=== PATIENT | female | born 1965 | race Caucasian/White ===

== ENCOUNTER → 2019-06-21 | Outpatient (CLI) | payer MEDICARE, MEDICAID ==
[2019-06-21 10:58] LABS: Calcium 8.8 mg/dL (8.5-10.1)
== END | disposition home or self-care (01) ==
LOC: LAB 09:34
PROVIDERS: ATTEND Internal Medicine Cardiovascular Disease
DX: E11.9 Type 2 diabetes mellitus without complications (principal); I42.0 Dilated cardiomyopathy; Z87.891 Personal history of nicotine dependence; Z98.890 Other specified postprocedural states; Z90.710 Acquired absence of both cervix and uterus; Z82.3 Family history of stroke; Z80.9 Family history of malignant neoplasm, unspecified; Z82.49 Family history of ischemic heart disease and other diseases of the circulatory system
CPT/HCPCS: 36415; 80048

== ENCOUNTER 2021-01-26 07:51 | Day surgery (SDC) | payer MEDICARE, OTHER, MEDICAID ==
[~2021-01-26] VITALS: Ht 160 cm; Wt 66.7 kg
[~2021-01-26 07:51] MED LIST: ASPI1TAB19 PO; CARV3.1240 PO; FLUT1AER3 IN; FURO20TA3 PO; LEVA1AER IN; METF-490 PO; PANT40TA2 PO; POTA10TA51 PO; ROSU10TA16 PO; SACU1TAB PO; SITA100T7 PO
[2021-01-26] MEDS ORDERED: VANCOMYCIN 500 MG in D5W 5% 100 ML IV ONE (09:15)
[2021-01-26] MEDS ORDERED: VANCOMYCIN 1GM/250ML 250 ML IV ONE ×2 (10:00→11:33)
[2021-01-26] MEDS ORDERED: MIDAZOLAM HCL 2MG/2ML 2ml VIAL (1mg/ml) ONE (11:32)
[2021-01-26] MEDS ORDERED: fentaNYL CITRATE 100 MCG/2 ML VL ONE (11:32)
[2021-01-26] MEDS ORDERED: VANCOMYCIN HCL 1000 MG VL ONE (11:32)
[2021-01-26] MEDS ORDERED: LIDOCAINE 2%HCL (LOCAL ANESTH.) INJ 20ML MDV ONE (11:33)
== END 2021-01-26 15:08 | disposition home or self-care (01) ==
LOC: CATH 07:51
PROVIDERS: ADMIT Internal Medicine Cardiovascular Disease; ATTEND Internal Medicine Cardiovascular Disease
DX: Z45.02 Encounter for adjustment and management of automatic implantable cardiac defibrillator (principal); R07.89 Other chest pain; Z98.890 Other specified postprocedural states; I42.9 Cardiomyopathy, unspecified; Z88.0 Allergy status to penicillin; Z20.822 Contact with and (suspected) exposure to COVID-19; Z68.26 Body mass index [BMI] 26.0-26.9, adult
CPT/HCPCS: 33263; C1882; J2250; J3010; J3370; J7030; U0003; 99152; 99153; J7060

== ENCOUNTER 2021-02-08 16:39 | Emergency (ER) | payer MEDICARE, OTHER, MEDICAID ==
[~2021-02-08] VITALS: Ht 160 cm; Wt 65.3 kg
[2021-02-08 17:07] VITALS: BP 119/86
== END 2021-02-08 18:17 | disposition home or self-care (01) ==
LOC: ER 16:39
DX: I10 Essential (primary) hypertension (principal); Z48.01 Encounter for change or removal of surgical wound dressing

== ENCOUNTER 2021-02-17 07:19 | Emergency (ER) | payer MEDICARE, OTHER, MEDICAID ==
[~2021-02-17] VITALS: Ht 157.5 cm; Wt 65.3 kg
[2021-02-17 09:19] LABS: Basophils # (auto) 0.1 10 ^3/uL (0-0.2); Basophils % (auto) 0.6 % (0.0-2.0); Eosinophils # (auto) 0.6 10 ^3/uL (0-0.8); Eosinophils % (auto) 4.3 % (0.0-7.0); Hematocrit 40.9 % (36.0-46.0); Hemoglobin 14.6 g/dL (12.2-16.2); Lymphocytes # (auto) 3.1 10 ^3/uL (0.4-5.4); Lymphocytes % (auto) 21.9 % (10.0-50.0); Mean Corpuscular Hemoglobin 33.3 pg (28.0-32.0); Mean Corpuscular Hgb Conc. 35.7 g/dL (32.0-36.0); Mean Corpuscular Volume 93.3 fL (80.0-100.0); Monocytes # (auto) 0.9 10 ^3/uL (0-1.3); Monocytes % (auto) 6.5 % (0.0-12.0); Neutrophils # (auto) 9.5 10 ^3/uL (1.6-8.6); Neutrophils % (auto) 66.7 % (37.0-80.0); Red Blood Cells 4.39 10^6/uL (4.0-5.20); White Blood Cell 14.3 10^3/uL (4.4-10.8)
[2021-02-17 09:30] LABS: Albumin 3.4 g/dL (3.4-5.0); BUN/Creatinine Ratio 28.6; Calcium 9.1 mg/dL (8.5-10.1); Potassium 3.6 mmol/L (3.5-5.1)
[2021-02-17 09:42] LABS: Bilirubin, Total 0.7 mg/dL (0.2-1.0)
[2021-02-17] MEDS ORDERED: cefTRIAXone 1GM/50ML D5W 50 ML IV ONE (13:45)
[2021-02-17 14:45] VITALS: BP 103/71
== END 2021-02-17 15:06 | disposition home or self-care (01) ==
LOC: ER 07:19
DX: T81.41XA Infection following a procedure, superficial incisional surgical site, initial encounter (principal); L03.313 Cellulitis of chest wall; I11.0 Hypertensive heart disease with heart failure; I50.9 Heart failure, unspecified; J44.9 Chronic obstructive pulmonary disease, unspecified; E11.9 Type 2 diabetes mellitus without complications; E78.5 Hyperlipidemia, unspecified
CPT/HCPCS: 36415; 80053; 85025; 85049; 87040; 87205; 96365; 99284; J0696

== ENCOUNTER 2021-03-14 16:18 | Inpatient (IN) | payer MEDICARE, MEDICAID ==
[~2021-03-14] VITALS: Ht 160 cm; Wt 69.6 kg
[2021-03-14 17:23] LABS: Basophils # (auto) 0.1 10 ^3/uL (0-0.2); Eosinophils # (auto) 0.6 10 ^3/uL (0-0.8); Eosinophils % (auto) 5.2 % (0.0-7.0); Hematocrit 44.8 % (36.0-46.0); Hemoglobin 15.8 g/dL (12.2-16.2); Lymphocytes # (auto) 2.8 10 ^3/uL (0.4-5.4); Mean Corpuscular Hgb Conc. 35.3 g/dL (32.0-36.0); Mean Corpuscular Volume 93.6 fL (80.0-100.0); Monocytes # (auto) 0.7 10 ^3/uL (0-1.3); Monocytes % (auto) 6.1 % (0.0-12.0); Neutrophils # (auto) 6.7 10 ^3/uL (1.6-8.6); Neutrophils % (auto) 61.7 % (37.0-80.0); Nucleated Red Blood Cells % 0.1 %; Red Blood Cells 4.78 10^6/uL (4.0-5.20); Red Cell Distribution Width 14.1 % (11.8-14.3); White Blood Cell 10.9 10^3/uL (4.4-10.8)
[2021-03-14] MEDS ORDERED: cefTRIAXone 1GM/50ML D5W 50 ML IV ONE (17:30)
[2021-03-14 17:41] LABS: Albumin 4.1 g/dL (3.4-5.0); Anion Gap 5 (5-15); Blood Urea Nitrogen 13 mg/dL (7-18); Calcium 9.2 mg/dL (8.5-10.1); Carbon Dioxide 29 mmol/L (21-32); Chloride 106 mmol/L (98-107); Glucose 128 mg/dL (74-106); Potassium 4.2 mmol/L (3.5-5.1); Sodium 140 mmol/L (136-145)
[2021-03-14 17:43] LABS: Alanine Aminotransferase 74 U/L (13-56); Aspartate Aminotransferase 74 U/L (15-37); BUN/Creatinine Ratio 18.8; GFR African American 114 mL/min; GFR Non-African American 94 mL/min
[2021-03-14 17:48] LABS: Alkaline Phosphatase 99 U/L (45-117); Bilirubin, Total 0.5 mg/dL (0.2-1.0); Total Protein 8.2 g/dL (6.4-8.2)
[2021-03-14] MEDS ORDERED: SODIUM CHLORIDE 0.9% 1,000 ML IV ONE (18:00)
[2021-03-14] MEDS ORDERED: NITROGLYCERIN 0.4 MG SL TAB SL PRN (18:00)
[2021-03-14] MEDS ORDERED: DEXTROSE (50%) 50ML SYRG IV PRN (18:00)
[2021-03-14] MEDS ORDERED: VANCOMYCIN PER PHARMACY 0 MG IV SCH (18:00)
[2021-03-14] MEDS ORDERED: MORPHINE SULF INJ 2 MG/ML SYRINGE 1ML IV PRN (18:00)
[2021-03-14] MEDS: VANCOMYCIN 1GM/250ML 250 ML IV SCH ×2 (19:44→22:00)
[2021-03-14 22:30] VITALS: BP 98/68
[2021-03-14] MEDS: ACCU-CHEK COMFORT CURVE STRIP VI SCH (22:58)
[2021-03-14] MEDS: InsuLIN REG 1unit/0.01ml Soln (100units/ml) SC SCH (23:00)
[2021-03-15] VITALS (7 sets, daily range): BP systolic 108–147; BP diastolic 67–80
[2021-03-15] MEDS: ACCU-CHEK COMFORT CURVE STRIP VI SCH ×4 (06:14→22:09)
[2021-03-15] MEDS: InsuLIN REG 1unit/0.01ml Soln (100units/ml) SC SCH ×4 (06:14→22:10)
[2021-03-15] MEDS: SACUBITRIL-VALSARTAN 24mg/26mg TAB PO SCH (06:15)
[2021-03-15] MEDS: PANTOPRAZOLE 40 MG TAB PO SCH (06:15)
[2021-03-15] MEDS: CARVEDILOL 3.125 MG TAB PO SCH (06:16)
[2021-03-15 06:54] LABS: Basophils # (auto) 0.1 10 ^3/uL (0-0.2); Basophils % (auto) 0.7 % (0.0-2.0); Eosinophils # (auto) 0.7 10 ^3/uL (0-0.8); Eosinophils % (auto) 6.9 % (0.0-7.0); Hematocrit 42.9 % (36.0-46.0); Hemoglobin 15.1 g/dL (12.2-16.2); Lymphocytes # (auto) 2.9 10 ^3/uL (0.4-5.4); Lymphocytes % (auto) 26.8 % (10.0-50.0); Mean Corpuscular Hemoglobin 33.3 pg (28.0-32.0); Mean Corpuscular Hgb Conc. 35.3 g/dL (32.0-36.0); Mean Corpuscular Volume 94.3 fL (80.0-100.0); Monocytes # (auto) 0.7 10 ^3/uL (0-1.3); Monocytes % (auto) 6.3 % (0.0-12.0); Neutrophils # (auto) 6.4 10 ^3/uL (1.6-8.6); Neutrophils % (auto) 59.3 % (37.0-80.0); Red Blood Cells 4.54 10^6/uL (4.0-5.20); Red Cell Distribution Width 14.4 % (11.8-14.3); White Blood Cell 10.8 10^3/uL (4.4-10.8)
[2021-03-15 07:20] LABS: Albumin 3.6 g/dL (3.4-5.0); BUN/Creatinine Ratio 22.2; Calcium 8.7 mg/dL (8.5-10.1); Potassium 3.9 mmol/L (3.5-5.1)
[2021-03-15 07:23] LABS: Bilirubin, Total 0.4 mg/dL (0.2-1.0); Total Protein 7.1 g/dL (6.4-8.2)
[2021-03-15] MEDS: cefTRIAXone 1GM/50ML D5W 50 ML IV SCH (09:00)
[2021-03-15] MEDS ORDERED: ASPirin-EC 81 mg tab PO SCH (10:00)
[2021-03-15] MEDS: VANCOMYCIN 1GM/250ML 250 ML IV SCH ×2 (10:08→21:20)
[2021-03-15 18:04] LABS: Urine Bacteria FEW /hpf (None Seen); Urine Blood Negative /uL (Negative); Urine Specific Gravity 1.004 (1.001-1.035); Urine WBC 4 /hpf (0 - 5)
[2021-03-15] MEDS: ATORVASTATIN 20 MG TAB PO SCH (21:19)
[2021-03-16] VITALS (7 sets, daily range): BP systolic 98–121; BP diastolic 64–73
[2021-03-16] MEDS ORDERED: ALBUTEROL SULF 2.5 MG/0.5ML(0.5%) NEB SOLN NEB PRN (05:00)
[2021-03-16] MEDS ORDERED: ACETAMINOPHEN 325 MG TAB PO ONE (05:00)
[2021-03-16] MEDS: SACUBITRIL-VALSARTAN 24mg/26mg TAB PO SCH (06:40)
[2021-03-16] MEDS: CARVEDILOL 3.125 MG TAB PO SCH (06:40)
[2021-03-16] MEDS: ACCU-CHEK COMFORT CURVE STRIP VI SCH ×4 (06:41→22:30)
[2021-03-16] MEDS: PANTOPRAZOLE 40 MG TAB PO SCH (06:41)
[2021-03-16] MEDS: InsuLIN REG 1unit/0.01ml Soln (100units/ml) SC SCH ×4 (06:45→22:31)
[2021-03-16] MEDS: cefTRIAXone 1GM/50ML D5W 50 ML IV SCH (09:17)
[2021-03-16] MEDS: VANCOMYCIN 1GM/250ML 250 ML IV SCH ×2 (10:00→22:46)
[2021-03-16] MEDS: ASPirin 81 mg TAB PO SCH (10:18)
[2021-03-16] MEDS: ATORVASTATIN 20 MG TAB PO SCH (22:45)
[2021-03-17 05:20] VITALS: BP 116/73
[2021-03-17] MEDS: ACCU-CHEK COMFORT CURVE STRIP VI SCH ×4 (06:17→21:51)
[2021-03-17] MEDS: InsuLIN REG 1unit/0.01ml Soln (100units/ml) SC SCH ×4 (06:19→21:54)
[2021-03-17] MEDS: SACUBITRIL-VALSARTAN 24mg/26mg TAB PO SCH (06:24)
[2021-03-17] MEDS: CARVEDILOL 3.125 MG TAB PO SCH (06:25)
[2021-03-17] MEDS: PANTOPRAZOLE 40 MG TAB PO SCH (06:26)
[2021-03-17 08:00] VITALS: BP 136/77
[2021-03-17 09:00] VITALS: BP 136/77
[2021-03-17] MEDS: ASPirin 81 mg TAB PO SCH (09:27)
[2021-03-17] MEDS: cefTRIAXone 1GM/50ML D5W 50 ML IV SCH (09:27)
[2021-03-17] MEDS: VANCOMYCIN 1GM/250ML 250 ML IV SCH ×2 (10:05→21:50)
[2021-03-17 14:00] VITALS: BP 113/73
[2021-03-17 17:00] VITALS: BP 105/67
[2021-03-17] MEDS: ATORVASTATIN 20 MG TAB PO SCH (21:50)
[2021-03-17 22:00] VITALS: BP 120/75
[2021-03-18] MEDS: CARVEDILOL 3.125 MG TAB PO SCH (06:32)
[2021-03-18] MEDS: SACUBITRIL-VALSARTAN 24mg/26mg TAB PO SCH (06:32)
[2021-03-18] MEDS: PANTOPRAZOLE 40 MG TAB PO SCH (06:33)
[2021-03-18] MEDS: ACCU-CHEK COMFORT CURVE STRIP VI SCH ×4 (06:33→22:23)
[2021-03-18] MEDS: InsuLIN REG 1unit/0.01ml Soln (100units/ml) SC SCH ×4 (06:34→22:43)
[2021-03-18] MEDS: cefTRIAXone 1GM/50ML D5W 50 ML IV SCH (08:30)
[2021-03-18 09:00] VITALS: BP 136/76
[2021-03-18] MEDS: ASPirin 81 mg TAB PO SCH (09:59)
[2021-03-18] MEDS: VANCOMYCIN 1GM/250ML 250 ML IV SCH ×2 (10:00→22:23)
[2021-03-18 17:00] VITALS: BP 120/77
[2021-03-18 20:00] VITALS: BP 128/85
[2021-03-18 22:00] VITALS: BP 128/85
[2021-03-18] MEDS: ATORVASTATIN 20 MG TAB PO SCH (22:23)
[2021-03-19] VITALS (7 sets, daily range): BP systolic 116–130; BP diastolic 74–85
[2021-03-19 06:11] LABS: Basophils # (auto) 0.1 10 ^3/uL (0-0.2); Basophils % (auto) 0.7 % (0.0-2.0); Eosinophils # (auto) 0.7 10 ^3/uL (0-0.8); Eosinophils % (auto) 6.5 % (0.0-7.0); Hematocrit 43.2 % (36.0-46.0); Lymphocytes # (auto) 2.9 10 ^3/uL (0.4-5.4); Lymphocytes % (auto) 24.9 % (10.0-50.0); Mean Corpuscular Hemoglobin 33.3 pg (28.0-32.0); Mean Corpuscular Hgb Conc. 34.8 g/dL (32.0-36.0); Mean Corpuscular Volume 95.8 fL (80.0-100.0); Monocytes # (auto) 0.8 10 ^3/uL (0-1.3); Monocytes % (auto) 6.7 % (0.0-12.0); Neutrophils # (auto) 7.1 10 ^3/uL (1.6-8.6); Neutrophils % (auto) 61.2 % (37.0-80.0); Red Blood Cells 4.51 10^6/uL (4.0-5.20); Red Cell Distribution Width 14.2 % (11.8-14.3); White Blood Cell 11.5 10^3/uL (4.4-10.8)
[2021-03-19 06:37] LABS: Calcium 8.7 mg/dL (8.5-10.1); Potassium 3.9 mmol/L (3.5-5.1)
[2021-03-19] MEDS: CARVEDILOL 3.125 MG TAB PO SCH (06:40)
[2021-03-19] MEDS: ACCU-CHEK COMFORT CURVE STRIP VI SCH ×4 (06:40→22:16)
[2021-03-19] MEDS: SACUBITRIL-VALSARTAN 24mg/26mg TAB PO SCH (06:40)
[2021-03-19] MEDS: PANTOPRAZOLE 40 MG TAB PO SCH (06:40)
[2021-03-19] MEDS: InsuLIN REG 1unit/0.01ml Soln (100units/ml) SC SCH ×3 (06:44→17:37)
[2021-03-19] MEDS: cefTRIAXone 1GM/50ML D5W 50 ML IV SCH (08:27)
[2021-03-19] MEDS: ASPirin 81 mg TAB PO SCH (10:14)
[2021-03-19] MEDS: VANCOMYCIN 1GM/250ML 250 ML IV SCH ×2 (10:14→22:00)
[2021-03-19] MEDS ORDERED: DEXTROSE (50%) 50ML SYRG IV PRN (10:30)
[2021-03-19] MEDS ORDERED: InsuLIN REG 1unit/0.01ml Soln (100units/ml) SC SCH (22:00)
[2021-03-19] MEDS: ATORVASTATIN 20 MG TAB PO SCH (22:15)
== END 2021-03-20 00:25 | disposition short-term general hospital (02) | DRG 920 ==
LOC: ER 16:18 → TELE 17:48 → TELE-EAST 22:00 → TELE-CENTR 03-17 22:48
PROVIDERS: ADMIT Nurse Practitioner Acute Care; ATTEND Internal Medicine
DX: T81.31XA Disruption of external operation (surgical) wound, not elsewhere classified, initial encounter (principal); L03.313 Cellulitis of chest wall; I50.22 Chronic systolic (congestive) heart failure; N39.0 Urinary tract infection, site not specified; I42.0 Dilated cardiomyopathy; E11.9 Type 2 diabetes mellitus without complications; Z20.822 Contact with and (suspected) exposure to COVID-19; E78.5 Hyperlipidemia, unspecified; I11.0 Hypertensive heart disease with heart failure; J44.9 Chronic obstructive pulmonary disease, unspecified; Y83.8 Other surgical procedures as the cause of abnormal reaction of the patient, or of later complication, without mention of misadventure at the time of the procedure; Z91.19 Patient's noncompliance with other medical treatment and regimen; Y92.89 Other specified places as the place of occurrence of the external cause; Z79.899 Other long term (current) drug therapy
CPT/HCPCS: 36415; 71046; 80048; 80053; 80202; 81001; 82962; 83036; 83605; 83880; 84484; 85025; 87040; 87077; 87081; 87205; 87426; 93005; 94640; 96365; G0378; J0696; J1815

== ENCOUNTER → 2021-05-11 | Outpatient (CLI) | payer MEDICARE, MEDICAID ==
[2021-05-11 13:23] LABS: Basophils # (auto) 0.1 10 ^3/uL (0-0.2); Eosinophils # (auto) 0.2 10 ^3/uL (0-0.8); Hematocrit 47.2 % (36.0-46.0); Hemoglobin 15.9 g/dL (12.2-16.2); Lymphocytes # (auto) 2.4 10 ^3/uL (0.4-5.4); Lymphocytes % (auto) 20.4 % (10.0-50.0); Mean Corpuscular Hemoglobin 31.5 pg (28.0-32.0); Mean Corpuscular Hgb Conc. 33.7 g/dL (32.0-36.0); Mean Corpuscular Volume 93.6 fL (80.0-100.0); Monocytes # (auto) 0.6 10 ^3/uL (0-1.3); Monocytes % (auto) 5.3 % (0.0-12.0); Neutrophils # (auto) 8.4 10 ^3/uL (1.6-8.6); Neutrophils % (auto) 71.3 % (37.0-80.0); Nucleated Red Blood Cells % 0.1 %; Red Blood Cells 5.04 10^6/uL (4.0-5.20); Red Cell Distribution Width 14.6 % (11.8-14.3); White Blood Cell 11.8 10^3/uL (4.4-10.8)
[2021-05-11 13:47] LABS: Albumin 3.6 g/dL (3.4-5.0); Calcium 9.5 mg/dL (8.5-10.1); Potassium 4.4 mmol/L (3.5-5.1)
[2021-05-11 13:54] LABS: BUN/Creatinine Ratio 20.5; Bilirubin, Total 0.5 mg/dL (0.2-1.0); Total Protein 7.9 g/dL (6.4-8.2)
== END | disposition home or self-care (01) ==
LOC: LAB 13:06
PROVIDERS: ATTEND Internal Medicine Cardiovascular Disease
DX: E11.9 Type 2 diabetes mellitus without complications (principal); I42.0 Dilated cardiomyopathy
CPT/HCPCS: 36415; 80053; 80061; 83036; 85025

== ENCOUNTER 2021-11-26 13:38 | Inpatient (IN) | payer MEDICARE, MEDICAID ==
[~2021-11-26] VITALS: Ht 157.5 cm; Wt 68.6 kg
[2021-11-26 14:16] LABS: Basophils # (auto) 0.1 10 ^3/uL (0-0.2); Basophils % (auto) 0.8 % (0.0-2.0); Eosinophils # (auto) 0.5 10 ^3/uL (0-0.8); Eosinophils % (auto) 3.5 % (0.0-7.0); Hematocrit 48.6 % (36.0-46.0); Hemoglobin 16.6 g/dL (12.2-16.2); Lymphocytes # (auto) 2.8 10 ^3/uL (0.4-5.4); Lymphocytes % (auto) 18.8 % (10.0-50.0); Mean Corpuscular Hemoglobin 30.8 pg (28.0-32.0); Mean Corpuscular Hgb Conc. 34.2 g/dL (32.0-36.0); Monocytes # (auto) 0.8 10 ^3/uL (0-1.3); Monocytes % (auto) 5.5 % (0.0-12.0); Neutrophils # (auto) 10.5 10 ^3/uL (1.6-8.6); Neutrophils % (auto) 71.4 % (37.0-80.0); Nucleated Red Blood Cells % 0.1 %; Red Cell Distribution Width 14.4 % (11.8-14.3); White Blood Cell 14.8 10^3/uL (4.4-10.8)
[2021-11-26 14:36] LABS: Albumin 3.7 g/dL (3.4-5.0); BUN/Creatinine Ratio 8.7; Calcium 9.6 mg/dL (8.5-10.1); Potassium 4.5 mmol/L (3.5-5.1)
[2021-11-26 14:39] LABS: Bilirubin, Total 0.4 mg/dL (0.2-1.0)
[2021-11-26] MEDS ORDERED: NITROGLYCERIN 0.4 MG SL TAB SL PRN (16:45)
[2021-11-26] MEDS ORDERED: MORPHINE SULFATE INJECTION 2 MG/ML SYRG IV PRN (16:45)
[2021-11-26] MEDS ORDERED: LORazepam 0.5 MG TAB PO PRN (20:30)
[2021-11-26] MEDS ORDERED: IPRATROPIUM BROM 0.5 MG/2.5ML INH SOL NEB ONE (20:30)
[2021-11-26] MEDS ORDERED: DOCUSATE SOD 100 MG CAP PO PRN (20:30)
[2021-11-26] MEDS ORDERED: PANTOPRAZOLE 40 MG/10 ML VIAL INJ IV ONE (20:30)
[2021-11-26] MEDS ORDERED: PROMETHAZINE-DM 5 ML ORAL SYRUP PO PRN (20:30)
[2021-11-26] MEDS ORDERED: HYDROcodone-ACET 5/325MG TAB PO PRN (20:30)
[2021-11-26] MEDS ORDERED: DEXTROSE (50%) 50ML SYRG IV PRN (20:30)
[2021-11-26] MEDS ORDERED: HYDROcodone-ACET 5/325MG TAB PO ONE (20:30)
[2021-11-26] MEDS ORDERED: cefTRIAXone 1GM/50ML D5W 50 ML IV ONE (20:30)
[2021-11-26] MEDS ORDERED: hydrALAZINE HCL 20 MG/ML VL IV PRN (20:30)
[2021-11-26] MEDS ORDERED: CLINDAMYCIN 600MG IV 50 ML IV ONE (20:30)
[2021-11-26] MEDS ORDERED: LACTULOSE 20Gm/30ML SOLN PO PRN (20:30)
[2021-11-26] MEDS ORDERED: ACETAMINOPHEN 325 MG TAB PO PRN (20:30)
[2021-11-26] MEDS ORDERED: BUDESONIDE (INHALATION) 0.5 MG/2 ML NEB NEB ONE (20:30)
[2021-11-26] MEDS ORDERED: METOPROLOL SUCCINATE XL 50 MG TAB PO ONE (20:30)
[2021-11-26 20:54] VITALS: BP 122/72
[2021-11-26] MEDS: FUROSEMIDE 20 MG/2 ML VIAL IV SCH (20:58)
[2021-11-26] MEDS: ACETYLCYSTEINE 10 %(100MG/ML) SOL 4ML NEB SCH (22:00)
[2021-11-26] MEDS: ACCU-CHEK COMFORT CURVE STRIP VI SCH (22:00)
[2021-11-26] MEDS ORDERED: IPRATROPIUM BROM 0.5 MG/2.5ML INH SOL NEB SCH (22:00)
[2021-11-26] MEDS: BUDESONIDE (INHALATION) 0.5 MG/2 ML NEB NEB SCH (22:00)
[2021-11-26] MEDS: InsuLIN REG 1unit/0.01ml Soln (100units/ml) SC SCH (22:00)
[2021-11-26 22:07] LABS: Magnesium 2.6 mg/dL (1.6-2.6); Phosphorus 3.6 mg/dL (2.5-4.90)
[2021-11-26 22:27] LABS: INR 1.02 (0.9-1.15); Partial Thromboplastin Time 27.1 sec (23.6-33.0)
[2021-11-26] MEDS: CLINDAMYCIN 600MG IV 50 ML IV SCH (23:13)
[2021-11-26] MEDS: POTASSIUM CHL 20 Meq TABLET PO SCH (23:14)
[2021-11-26] MEDS: methylPREDNISolone SOD SUCC 40 MG/ML VL IV SCH (23:14)
[2021-11-26] MEDS: ATORVASTATIN 20 MG TAB PO SCH (23:14)
[2021-11-26] MEDS: METOPROLOL SUCCINATE XL 50 MG TAB PO SCH (23:15)
[2021-11-26 23:27] VITALS: BP 133/67
[2021-11-27 01:15] VITALS: BP 136/72
[2021-11-27 04:58] LABS: Basophils # (auto) 0.1 10 ^3/uL (0-0.2); Basophils % (auto) 0.8 % (0.0-2.0); Eosinophils # (auto) 0.5 10 ^3/uL (0-0.8); Eosinophils % (auto) 3.4 % (0.0-7.0); Hematocrit 45.2 % (36.0-46.0); Hemoglobin 15.9 g/dL (12.2-16.2); Lymphocytes # (auto) 2.6 10 ^3/uL (0.4-5.4); Lymphocytes % (auto) 19.5 % (10.0-50.0); Mean Corpuscular Hemoglobin 30.9 pg (28.0-32.0); Mean Corpuscular Hgb Conc. 35.1 g/dL (32.0-36.0); Mean Corpuscular Volume 88.2 fL (80.0-100.0); Monocytes # (auto) 0.8 10 ^3/uL (0-1.3); Monocytes % (auto) 5.8 % (0.0-12.0); Neutrophils # (auto) 9.5 10 ^3/uL (1.6-8.6); Neutrophils % (auto) 70.5 % (37.0-80.0); Nucleated Red Blood Cells % 0.3 %; Red Blood Cells 5.13 10^6/uL (4.0-5.20); Red Cell Distribution Width 14.1 % (11.8-14.3); White Blood Cell 13.4 10^3/uL (4.4-10.8)
[2021-11-27 05:00] VITALS: BP 106/67
[2021-11-27 05:16] LABS: INR 1.03 (0.9-1.15); Partial Thromboplastin Time 31.6 sec (23.6-33.0)
[2021-11-27 05:17] LABS: Albumin 3.1 g/dL (3.4-5.0); Magnesium 2.1 mg/dL (1.6-2.6); Potassium 3.9 mmol/L (3.5-5.1)
[2021-11-27 05:20] LABS: BUN/Creatinine Ratio 13.6; Phosphorus 3.9 mg/dL (2.5-4.90); Total Protein 6.9 g/dL (6.4-8.2)
[2021-11-27 05:22] LABS: Bilirubin, Total 0.5 mg/dL (0.2-1.0)
[2021-11-27] MEDS: InsuLIN REG 1unit/0.01ml Soln (100units/ml) SC SCH ×4 (05:51→23:07)
[2021-11-27] MEDS: ACCU-CHEK COMFORT CURVE STRIP VI SCH ×4 (06:19→22:00)
[2021-11-27 06:44] LABS: CRP High Sensitivity 2.48 mg/dL (< 0.3)
[2021-11-27] MEDS: IPRATROPIUM BROM 0.5 MG/2.5ML INH SOL NEB SCH ×2 (07:01→14:51)
[2021-11-27] MEDS: ACETYLCYSTEINE 10 %(100MG/ML) SOL 4ML NEB SCH ×2 (07:01→14:51)
[2021-11-27] MEDS: BUDESONIDE (INHALATION) 0.5 MG/2 ML NEB NEB SCH (07:01)
[2021-11-27] MEDS: CLINDAMYCIN 600MG IV 50 ML IV SCH ×3 (07:05→22:48)
[2021-11-27] MEDS: SACUBITRIL-VALSARTAN 24mg/26mg TAB PO SCH (07:06)
[2021-11-27] MEDS: FUROSEMIDE 20 MG/2 ML VIAL IV SCH ×2 (07:06→17:38)
[2021-11-27 09:00] VITALS: BP 168/65
[2021-11-27] MEDS: cefTRIAXone 1GM/50ML D5W 50 ML IV SCH (10:07)
[2021-11-27] MEDS: methylPREDNISolone SOD SUCC 40 MG/ML VL IV SCH ×2 (10:07→22:49)
[2021-11-27] MEDS: PANTOPRAZOLE 40 MG/10 ML VIAL INJ IV SCH (10:08)
[2021-11-27] MEDS: CHOLECALCIFEROL (VITD3) 2,000 UNIT CAP/TAB PO SCH (10:08)
[2021-11-27] MEDS: ENOXAPARIN SOD 40 MG/0.4 ML SYRINGE SC SCH (10:09)
[2021-11-27] MEDS: POTASSIUM CHL 20 Meq TABLET PO SCH ×2 (10:09→22:49)
[2021-11-27] MEDS: ASPirin-EC 81 mg tab PO SCH (10:09)
[2021-11-27 13:00] VITALS: BP 107/65
[2021-11-27 17:00] VITALS: BP 93/59
[2021-11-27 17:12] LABS: Alcohol, Urine < 3.0 mg/dL (0-10); Amphetamine Screen, Urine NEGATIVE (NEGATIVE); Barbiturate Scree,Urine NEGATIVE (NEGATIVE); Benzodiazephine Screen, Urine NEGATIVE (NEGATIVE); Cannabinoid Screen, Urine NEGATIVE (NEGATIVE); Cocaine Screen, Urine NEGATIVE (NEGATIVE); Opiate Scree,Urine NEGATIVE (NEGATIVE); Phencyclidine Screen, Urine NEGATIVE (NEGATIVE)
[2021-11-27 18:15] LABS: Urine Bacteria NONE SEEN /hpf (None Seen); Urine Blood Negative /uL (Negative); Urine Specific Gravity 1.012 (1.001-1.035); Urine WBC 1 /hpf (0 - 5)
[2021-11-27 22:00] VITALS: BP 104/70
[2021-11-27] MEDS: ATORVASTATIN 20 MG TAB PO SCH (22:49)
[2021-11-27] MEDS: METOPROLOL SUCCINATE XL 50 MG TAB PO SCH (22:50)
[2021-11-28] MEDS: ACETYLCYSTEINE 10 %(100MG/ML) SOL 4ML NEB SCH ×3 (01:23→06:21)
[2021-11-28] MEDS: IPRATROPIUM BROM 0.5 MG/2.5ML INH SOL NEB SCH ×3 (01:24→22:31)
[2021-11-28] MEDS: BUDESONIDE (INHALATION) 0.5 MG/2 ML NEB NEB SCH ×3 (01:24→22:31)
[2021-11-28 05:00] VITALS: BP 125/79
[2021-11-28] MEDS: CLINDAMYCIN 600MG IV 50 ML IV SCH (06:44)
[2021-11-28] MEDS: ACCU-CHEK COMFORT CURVE STRIP VI SCH ×4 (06:45→22:37)
[2021-11-28] MEDS: SACUBITRIL-VALSARTAN 24mg/26mg TAB PO SCH (06:45)
[2021-11-28] MEDS: FUROSEMIDE 20 MG/2 ML VIAL IV SCH ×2 (06:45→18:37)
[2021-11-28] MEDS: InsuLIN REG 1unit/0.01ml Soln (100units/ml) SC SCH ×4 (07:01→22:37)
[2021-11-28 09:00] VITALS: BP 102/64
[2021-11-28] MEDS: cefTRIAXone 1GM/50ML D5W 50 ML IV SCH (09:25)
[2021-11-28] MEDS: ASPirin-EC 81 mg tab PO SCH (09:26)
[2021-11-28] MEDS: methylPREDNISolone SOD SUCC 40 MG/ML VL IV SCH ×2 (09:26→22:46)
[2021-11-28] MEDS: PANTOPRAZOLE 40 MG/10 ML VIAL INJ IV SCH (09:26)
[2021-11-28] MEDS: POTASSIUM CHL 20 Meq TABLET PO SCH ×2 (09:26→22:43)
[2021-11-28] MEDS: ENOXAPARIN SOD 40 MG/0.4 ML SYRINGE SC SCH (09:27)
[2021-11-28] MEDS: CHOLECALCIFEROL (VITD3) 2,000 UNIT CAP/TAB PO SCH (09:27)
[2021-11-28 13:00] VITALS: BP 110/70
[2021-11-28 17:00] VITALS: BP 114/69
[2021-11-28] MEDS: MORPHINE SULFATE INJECTION 2 MG/ML SYRG IV PRN (20:25)
[2021-11-28 22:00] VITALS: BP 113/69
[2021-11-28] MEDS: METOPROLOL SUCCINATE XL 50 MG TAB PO SCH (22:43)
[2021-11-28] MEDS: DOXYCYCLINE 100 MG TAB/CAP PO SCH (22:43)
[2021-11-28] MEDS: ATORVASTATIN 20 MG TAB PO SCH (22:44)
[2021-11-29 05:00] VITALS: BP 105/63
[2021-11-29] MEDS: FUROSEMIDE 20 MG/2 ML VIAL IV SCH ×2 (06:34→18:00)
[2021-11-29] MEDS: SACUBITRIL-VALSARTAN 24mg/26mg TAB PO SCH (06:34)
[2021-11-29] MEDS: InsuLIN REG 1unit/0.01ml Soln (100units/ml) SC SCH ×3 (06:50→18:00)
[2021-11-29] MEDS: ACCU-CHEK COMFORT CURVE STRIP VI SCH ×3 (07:08→17:00)
[2021-11-29] MEDS: BUDESONIDE (INHALATION) 0.5 MG/2 ML NEB NEB SCH (08:21)
[2021-11-29] MEDS: IPRATROPIUM BROM 0.5 MG/2.5ML INH SOL NEB SCH ×2 (08:21→15:25)
[2021-11-29 09:00] VITALS: BP 111/72
[2021-11-29] MEDS: PANTOPRAZOLE 40 MG/10 ML VIAL INJ IV SCH (10:03)
[2021-11-29] MEDS: cefTRIAXone 1GM/50ML D5W 50 ML IV SCH (10:03)
[2021-11-29] MEDS: ENOXAPARIN SOD 40 MG/0.4 ML SYRINGE SC SCH (10:04)
[2021-11-29] MEDS: methylPREDNISolone SOD SUCC 40 MG/ML VL IV SCH (10:04)
[2021-11-29] MEDS: ASPirin-EC 81 mg tab PO SCH (10:04)
[2021-11-29] MEDS: CHOLECALCIFEROL (VITD3) 2,000 UNIT CAP/TAB PO SCH (10:04)
[2021-11-29] MEDS: DOXYCYCLINE 100 MG TAB/CAP PO SCH (10:04)
[2021-11-29] MEDS: POTASSIUM CHL 20 Meq TABLET PO SCH (10:04)
[2021-11-29] MEDS: MORPHINE SULFATE INJECTION 2 MG/ML SYRG IV PRN (10:21)
[2021-11-29] MEDS ORDERED: DOXY-340 PO ×2 (11:16→11:18)
[2021-11-29] MEDS ORDERED: PRED20TA2 PO (11:16)
[2021-11-29] MEDS ORDERED: LORA0.5T20 PO (11:31)
[2021-11-29 14:45] VITALS: BP 111/76
== END 2021-11-29 19:03 | disposition home or self-care (01) | DRG 871 ==
LOC: ER 13:38 → TELE 16:35 → TELE-WESTW 22:00
PROVIDERS: ADMIT Hospitalist; ATTEND Family Medicine
DX: A41.9 Sepsis, unspecified organism (principal); I50.43 Acute on chronic combined systolic (congestive) and diastolic (congestive) heart failure; J96.20 Acute and chronic respiratory failure, unspecified whether with hypoxia or hypercapnia; N39.0 Urinary tract infection, site not specified; I42.0 Dilated cardiomyopathy; J47.0 Bronchiectasis with acute lower respiratory infection; J84.9 Interstitial pulmonary disease, unspecified; I27.9 Pulmonary heart disease, unspecified; I11.0 Hypertensive heart disease with heart failure; D75.1 Secondary polycythemia; J43.2 Centrilobular emphysema; E11.21 Type 2 diabetes mellitus with diabetic nephropathy; E11.40 Type 2 diabetes mellitus with diabetic neuropathy, unspecified; Z20.822 Contact with and (suspected) exposure to COVID-19; E78.00 Pure hypercholesterolemia, unspecified; E78.5 Hyperlipidemia, unspecified; Z83.3 Family history of diabetes mellitus; Z82.49 Family history of ischemic heart disease and other diseases of the circulatory system; Z87.891 Personal history of nicotine dependence; Z95.810 Presence of automatic (implantable) cardiac defibrillator; Z68.27 Body mass index [BMI] 27.0-27.9, adult; E66.01 Morbid (severe) obesity due to excess calories
CPT/HCPCS: 36415; 36600; 71046; 80053; 80061; 80307; 81001; 82550; 82728; 82805; 82962; 83036; 83615; 83690; 83735; 83880; 84100; 84443; 84484; 85025; 85379; 85610; 85652; 85730; 86141; 87040; 87086; 93005; 93306; 94640; 96365; 96375; C9113; G0378; J0696; J1815; J3490

== ENCOUNTER 2023-08-20 15:45 | Inpatient (IN) | payer MEDICARE, MEDICAID ==
[~2023-08-20] VITALS: Ht 157.5 cm; Wt 63.5 kg
[~2023-08-20 15:45] MED LIST changes: +DOXY1CAP57 PO; +LORA-1121 PO; +PRED20TA2 PO
[2023-08-20 16:14] LABS: Basophils # (auto) 0.1 10 ^3/uL (0-0.2); Basophils % (auto) 0.9 % (0.0-2.0); Eosinophils # (auto) 0.2 10 ^3/uL (0-0.8); Eosinophils % (auto) 2.2 % (0.0-7.0); Hematocrit 42.9 % (36.0-46.0); Hemoglobin 14.7 g/dL (12.2-16.2); Lymphocytes # (auto) 2.4 10 ^3/uL (0.4-5.4); Lymphocytes % (auto) 23.5 % (10.0-50.0); Mean Corpuscular Hgb Conc. 34.2 g/dL (32.0-36.0); Mean Corpuscular Volume 93.5 fL (80.0-100.0); Monocytes # (auto) 0.7 10 ^3/uL (0-1.3); Monocytes % (auto) 6.8 % (0.0-12.0); Neutrophils # (auto) 6.8 10 ^3/uL (1.6-8.6); Neutrophils % (auto) 66.6 % (37.0-80.0); Nucleated Red Blood Cells % 0.1 %; Red Blood Cells 4.59 10^6/uL (4.0-5.20); Red Cell Distribution Width 14.1 % (11.8-14.3); White Blood Cell 10.1 10^3/uL (4.4-10.8)
[2023-08-20 16:33] LABS: INR 0.97 (0.9-1.15); Partial Thromboplastin Time 28.7 SEC (24.5-34.5); Prothrombin Time 10.4 sec (9.3-11.8)
[2023-08-20 16:36] LABS: Alanine Aminotransferase 45 U/L (7-40); Albumin 4.2 g/dL (3.2-4.8); Alkaline Phosphatase 106 U/L (46-116); Anion Gap 6 (5-15); Aspartate Aminotransferase 34 U/L (13-40); BUN/Creatinine Ratio 18.9 (10.0-20.0); Bilirubin, Total 0.6 mg/dL (0.2-1.0); Blood Urea Nitrogen 14 mg/dL (9-23); Calcium 9.2 mg/dL (8.7-10.4); Carbon Dioxide 30 mmol/L (20-30); Chloride 106 mmol/L (98-107); Glucose 155 mg/dL (74-106); Magnesium 1.8 mg/dL (1.6-2.6); Sodium 142 mmol/L (136-145); Total Protein 6.3 g/dL (5.7-8.2)
[2023-08-20] MEDS ORDERED: methylPREDNISolone SOD SUCC 125 MG/2 ML VL IV ONE (20:30)
[2023-08-20] MEDS ORDERED: ASPirin 325 MG TAB PO ONE (20:30)
[2023-08-20] MEDS ORDERED: cefTRIAXone 1GM/50ML D5W 50 ML IV ONE (20:30)
[2023-08-20] MEDS ORDERED: ALBUTEROL SULF 2.5 MG/0.5ML(0.5%) NEB SOLN NEB ONE (20:30)
[2023-08-20] MEDS ORDERED: NITROGLYCERIN 2% OINT 1GM PKG TD ONE (20:30)
[2023-08-20] MEDS ORDERED: DEXTROSE (50%) 50ML SYRG IV PRN (20:45)
[2023-08-20] MEDS ORDERED: ZOLPIDEM TARTRATE 5 MG TAB PO PRN (20:45)
[2023-08-20] MEDS ORDERED: ONDANSETRON HCL 4 MG/2 ML VIAL IV PRN (20:45)
[2023-08-20] MEDS ORDERED: LORazepam 0.5 MG TAB PO PRN (20:45)
[2023-08-20] MEDS ORDERED: MORPHINE SULFATE 4 MG/ML SYR/VIAL IV PRN (20:45)
[2023-08-20] MEDS ORDERED: NITROGLYCERIN 0.4 MG SL TAB SL PRN (20:45)
[2023-08-20] MEDS: SACUBITRIL-VALSARTAN 24mg/26mg TAB PO SCH (21:33)
[2023-08-20] MEDS: ACCU-CHEK COMFORT CURVE STRIP VI SCH (21:49)
[2023-08-20] MEDS: InsuLIN REG 1unit/0.01ml Soln (100units/ml) SC SCH (21:53)
[2023-08-20] MEDS ORDERED: METOPROLOL TARTRATE 25 MG TAB PO SCH (22:00)
[2023-08-20 23:00] VITALS: BP 154/93; PULSE 94; RESP 20; TEMP 98.5; O2SAT 95
[2023-08-21] VITALS (9 sets, daily range): PULSE 64–84; RESP 14–22; O2SAT 93–98
[2023-08-21 03:33] LABS: Urine Bacteria FEW /hpf (None Seen); Urine Blood Negative /uL (Negative); Urine Clarity Clear (Clear); Urine Color Colorless (Yellow); Urine Protein, UAD TRACE (Negative); Urine Specific Gravity 1.011 (1.001-1.035); Urine Urobilinogen Normal (Negative); Urine WBC 23 /hpf (0 - 5); Urine pH 6.5 (5.0-8.0)
[2023-08-21 03:45] LABS: COVID19 ANTIGEN SOFIA FIA NEGATIVE (NEGATIVE)
[2023-08-21 03:46] LABS: Rapid Influenza A Negative (Negative); Rapid Influenza B Negative (Negative)
[2023-08-21 05:46] LABS: Basophils # (auto) 0 10 ^3/uL (0-0.2); Basophils % (auto) 0.3 % (0.0-2.0); Eosinophils # (auto) 0 10 ^3/uL (0-0.8); Eosinophils % (auto) 0.1 % (0.0-7.0); Hemoglobin 15.4 g/dL (12.2-16.2); Lymphocytes # (auto) 0.9 10 ^3/uL (0.4-5.4); Lymphocytes % (auto) 8.5 % (10.0-50.0); Mean Corpuscular Hemoglobin 32.3 pg (28.0-32.0); Mean Corpuscular Hgb Conc. 34.3 g/dL (32.0-36.0); Mean Corpuscular Volume 94.2 fL (80.0-100.0); Monocytes # (auto) 0.1 10 ^3/uL (0-1.3); Monocytes % (auto) 0.7 % (0.0-12.0); Neutrophils # (auto) 9.1 10 ^3/uL (1.6-8.6); Neutrophils % (auto) 90.4 % (37.0-80.0); Nucleated Red Blood Cells % 0.1 %; Red Blood Cells 4.77 10^6/uL (4.0-5.20)
[2023-08-21 06:23] LABS: Chloride 105 mmol/L (98-107); Potassium 3.8 mmol/L (3.5-5.1); Sodium 139 mmol/L (136-145)
[2023-08-21 06:24] LABS: Anion Gap 8 (5-15); Calcium 9.5 mg/dL (8.5-10.1); Carbon Dioxide 26 mmol/L (20-30)
[2023-08-21 06:29] LABS: BUN/Creatinine Ratio 14.3 (10.0-20.0); Blood Urea Nitrogen 10 mg/dL (9-23); Glucose 274 mg/dL (74-106); Triglycerides 71 mg/dL (< 150)
[2023-08-21 06:30] LABS: LDL Cholesterol 227 mg/dL (< 100)
[2023-08-21 06:31] LABS: Cholesterol 260 mg/dL (< 200); HDL Cholesterol 45 mg/dL (40-59)
[2023-08-21] MEDS: ACCU-CHEK COMFORT CURVE STRIP VI SCH ×4 (06:34→22:16)
[2023-08-21] MEDS: InsuLIN REG 1unit/0.01ml Soln (100units/ml) SC SCH ×4 (06:49→22:32)
[2023-08-21] MEDS: EMPAGLIFLOZIN 10 MG TAB PO SCH (08:29)
[2023-08-21] MEDS: INSULIN LANTUS (GLARGINE) 1 /0.01ml (100units/ml) SC SCH (08:29)
[2023-08-21] MEDS ORDERED: methylPREDNISolone SOD SUCC 125 MG/2 ML VL IV SCH (10:00)
[2023-08-21] MEDS ORDERED: CARVEDILOL 3.125 MG TAB PO SCH (10:00)
[2023-08-21] MEDS ORDERED: methylPREDNISolone SOD SUCC 40 MG/ML VL IV SCH (10:00)
[2023-08-21] MEDS: BUDESONIDE (INHALATION) 0.5 MG/2 ML NEB NEB SCH (10:46)
[2023-08-21] MEDS: ALBUTEROL SULF 2.5 MG/0.5ML(0.5%) NEB SOLN NEB PRN (10:46)
[2023-08-21] MEDS: CLOPIDOGREL BISULFATE 75 MG TAB PO SCH (10:49)
[2023-08-21] MEDS: POTASSIUM CHL 20 Meq TABLET PO SCH (10:50)
[2023-08-21] MEDS: CARVEDILOL 12.5 MG TAB PO SCH ×2 (10:51→22:34)
[2023-08-21] MEDS: ASPirin-EC 81 mg tab PO SCH (10:55)
[2023-08-21] MEDS: HEPARIN SODIUM (PORCINE) 5000 UNITS/ML 1ML VIAL SC SCH ×2 (10:55→22:32)
[2023-08-21] MEDS: SACUBITRIL-VALSARTAN 24mg/26mg TAB PO SCH ×2 (10:56→22:33)
[2023-08-21] MEDS: DOCUSATE SOD 100 MG CAP PO SCH (10:57)
[2023-08-21] MEDS: cefTRIAXone 1GM/50ML D5W 50 ML IV SCH (10:58)
[2023-08-21] MEDS: FAMOTIDINE 20 MG TAB PO SCH (11:15)
[2023-08-21] MEDS: FUROSEMIDE 40 MG/4 ML VIAL IV SCH (18:23)
[2023-08-21] MEDS: ATORVASTATIN 20 MG TAB PO SCH (22:33)
[2023-08-22] VITALS (10 sets, daily range): BP systolic 85–129; BP diastolic 53–76; PULSE 61–93; RESP 16–18; TEMP 97.5–98.2; O2SAT 92–97
[2023-08-22] MEDS: FUROSEMIDE 40 MG/4 ML VIAL IV SCH ×2 (06:33→17:58)
[2023-08-22] MEDS: EMPAGLIFLOZIN 10 MG TAB PO SCH (06:33)
[2023-08-22] MEDS: ACCU-CHEK COMFORT CURVE STRIP VI SCH ×4 (06:33→21:28)
[2023-08-22] MEDS: INSULIN LANTUS (GLARGINE) 1 /0.01ml (100units/ml) SC SCH (06:35)
[2023-08-22] MEDS: InsuLIN REG 1unit/0.01ml Soln (100units/ml) SC SCH ×4 (06:35→22:10)
[2023-08-22] MEDS: ALBUTEROL SULF 2.5 MG/0.5ML(0.5%) NEB SOLN NEB PRN ×2 (06:39→22:39)
[2023-08-22] MEDS: BUDESONIDE (INHALATION) 0.5 MG/2 ML NEB NEB SCH ×3 (06:39→22:39)
[2023-08-22 06:58] LABS: Basophils # (auto) 0 10 ^3/uL (0-0.2); Basophils % (auto) 0.3 % (0.0-2.0); Eosinophils # (auto) 0 10 ^3/uL (0-0.8); Eosinophils % (auto) 0.1 % (0.0-7.0); Hematocrit 43.6 % (36.0-46.0); Hemoglobin 14.9 g/dL (12.2-16.2); Lymphocytes # (auto) 2.7 10 ^3/uL (0.4-5.4); Lymphocytes % (auto) 18.7 % (10.0-50.0); Mean Corpuscular Hemoglobin 31.8 pg (28.0-32.0); Mean Corpuscular Hgb Conc. 34.2 g/dL (32.0-36.0); Mean Corpuscular Volume 93.1 fL (80.0-100.0); Monocytes # (auto) 0.9 10 ^3/uL (0-1.3); Monocytes % (auto) 6.5 % (0.0-12.0); Neutrophils # (auto) 10.8 10 ^3/uL (1.6-8.6); Neutrophils % (auto) 74.4 % (37.0-80.0); Nucleated Red Blood Cells % 0.1 %; Red Blood Cells 4.69 10^6/uL (4.0-5.20); Red Cell Distribution Width 14.2 % (11.8-14.3); White Blood Cell 14.6 10^3/uL (4.4-10.8)
[2023-08-22 07:13] LABS: Alanine Aminotransferase 35 U/L (7-40); Albumin 4.1 g/dL (3.2-4.8); Alkaline Phosphatase 94 U/L (46-116); Anion Gap 8 (5-15); Aspartate Aminotransferase 18 U/L (13-40); BUN/Creatinine Ratio 22.5 (10.0-20.0); Bilirubin, Total 0.7 mg/dL (0.2-1.0); Blood Urea Nitrogen 18 mg/dL (9-23); Calcium 9.7 mg/dL (8.5-10.1); Carbon Dioxide 27 mmol/L (20-30); Chloride 103 mmol/L (98-107); Glucose 162 mg/dL (74-106); Potassium 3.7 mmol/L (3.5-5.1); Sodium 138 mmol/L (136-145); Total Protein 6.5 g/dL (5.7-8.2)
[2023-08-22] MEDS ORDERED: ERGOCALCIFEROL 50,000 UNIT(1.25MG) CAP PO SCH (09:00)
[2023-08-22] MEDS: CARVEDILOL 12.5 MG TAB PO SCH ×2 (10:00→22:00)
[2023-08-22] MEDS: SACUBITRIL-VALSARTAN 24mg/26mg TAB PO SCH ×2 (10:00→22:00)
[2023-08-22] MEDS: FAMOTIDINE 20 MG TAB PO SCH (10:37)
[2023-08-22] MEDS: POTASSIUM CHL 20 Meq TABLET PO SCH (10:38)
[2023-08-22] MEDS: DOCUSATE SOD 100 MG CAP PO SCH (10:38)
[2023-08-22] MEDS: cefTRIAXone 1GM/50ML D5W 50 ML IV SCH (10:38)
[2023-08-22] MEDS: ASPirin-EC 81 mg tab PO SCH (10:38)
[2023-08-22] MEDS: CLOPIDOGREL BISULFATE 75 MG TAB PO SCH (10:38)
[2023-08-22] MEDS: HEPARIN SODIUM (PORCINE) 5000 UNITS/ML 1ML VIAL SC SCH ×2 (10:55→21:54)
[2023-08-22] MEDS: CYANOCOBALAMIN 500 MCG TAB PO SCH (12:11)
[2023-08-22] MEDS: ATORVASTATIN 20 MG TAB PO SCH (21:50)
[2023-08-23] VITALS (14 sets, daily range): BP systolic 94–124; BP diastolic 64–77; PULSE 65–107; RESP 15–20; TEMP 97.5–98.4; O2SAT 92–98
[2023-08-23] MEDS: BUDESONIDE (INHALATION) 0.5 MG/2 ML NEB NEB SCH ×2 (06:00→23:24)
[2023-08-23] MEDS: ACCU-CHEK COMFORT CURVE STRIP VI SCH ×4 (06:29→22:11)
[2023-08-23] MEDS: EMPAGLIFLOZIN 10 MG TAB PO SCH (06:29)
[2023-08-23] MEDS: FUROSEMIDE 40 MG/4 ML VIAL IV SCH ×2 (06:31→17:33)
[2023-08-23] MEDS: InsuLIN REG 1unit/0.01ml Soln (100units/ml) SC SCH ×4 (06:54→22:42)
[2023-08-23] MEDS: INSULIN LANTUS (GLARGINE) 1 /0.01ml (100units/ml) SC SCH (06:54)
[2023-08-23] MEDS: CARVEDILOL 12.5 MG TAB PO SCH ×2 (10:00→22:11)
[2023-08-23] MEDS: SACUBITRIL-VALSARTAN 24mg/26mg TAB PO SCH ×2 (10:00→22:11)
[2023-08-23] MEDS: cefTRIAXone 1GM/50ML D5W 50 ML IV SCH (10:18)
[2023-08-23] MEDS: DOCUSATE SOD 100 MG CAP PO SCH (10:19)
[2023-08-23] MEDS: FAMOTIDINE 20 MG TAB PO SCH (10:19)
[2023-08-23] MEDS: ASPirin-EC 81 mg tab PO SCH (10:19)
[2023-08-23] MEDS: POTASSIUM CHL 20 Meq TABLET PO SCH (10:20)
[2023-08-23] MEDS: CLOPIDOGREL BISULFATE 75 MG TAB PO SCH (10:20)
[2023-08-23] MEDS: CYANOCOBALAMIN 500 MCG TAB PO SCH (10:20)
[2023-08-23] MEDS: HEPARIN SODIUM (PORCINE) 5000 UNITS/ML 1ML VIAL SC SCH ×2 (10:31→22:18)
[2023-08-23] MEDS: ALBUTEROL SULF 2.5 MG/0.5ML(0.5%) NEB SOLN NEB PRN (14:30)
[2023-08-23] MEDS: ATORVASTATIN 20 MG TAB PO SCH (22:10)
[2023-08-24] VITALS (13 sets, daily range): BP systolic 92–111; BP diastolic 59–71; PULSE 70–102; RESP 16–24; TEMP 97.4–98.2; O2SAT 92–97
[2023-08-24] MEDS: BUDESONIDE (INHALATION) 0.5 MG/2 ML NEB NEB SCH ×2 (05:56→22:22)
[2023-08-24] MEDS: ACCU-CHEK COMFORT CURVE STRIP VI SCH ×4 (06:21→21:45)
[2023-08-24] MEDS: EMPAGLIFLOZIN 10 MG TAB PO SCH (06:21)
[2023-08-24] MEDS: FUROSEMIDE 40 MG/4 ML VIAL IV SCH ×2 (06:24→17:31)
[2023-08-24] MEDS: INSULIN LANTUS (GLARGINE) 1 /0.01ml (100units/ml) SC SCH (06:35)
[2023-08-24] MEDS: InsuLIN REG 1unit/0.01ml Soln (100units/ml) SC SCH ×4 (06:36→21:46)
[2023-08-24 06:48] LABS: Basophils # (auto) 0.1 10 ^3/uL (0-0.2); Basophils % (auto) 1.1 % (0.0-2.0); Eosinophils # (auto) 0.3 10 ^3/uL (0-0.8); Hemoglobin 17.7 g/dL (12.2-16.2); Monocytes # (auto) 0.9 10 ^3/uL (0-1.3)
[2023-08-24 06:50] LABS: Eosinophils % (auto) 3.1 % (0.0-7.0); Hematocrit 52.1 % (36.0-46.0); Lymphocytes # (auto) 2.4 10 ^3/uL (0.4-5.4); Lymphocytes % (auto) 23.7 % (10.0-50.0); Mean Corpuscular Hemoglobin 32.2 pg (28.0-32.0); Mean Corpuscular Hgb Conc. 33.9 g/dL (32.0-36.0); Mean Corpuscular Volume 94.9 fL (80.0-100.0); Monocytes % (auto) 9.2 % (0.0-12.0); Neutrophils # (auto) 6.3 10 ^3/uL (1.6-8.6); Neutrophils % (auto) 62.9 % (37.0-80.0); Nucleated Red Blood Cells % 0.3 %; Red Blood Cells 5.49 10^6/uL (4.0-5.20); Red Cell Distribution Width 14.3 % (11.8-14.3); White Blood Cell 10.1 10^3/uL (4.4-10.8)
[2023-08-24 07:26] LABS: Alanine Aminotransferase 31 U/L (7-40); Albumin 4.6 g/dL (3.2-4.8); Alkaline Phosphatase 97 U/L (46-116); Anion Gap 7 (5-15); Aspartate Aminotransferase 17 U/L (13-40); BUN/Creatinine Ratio 27.2 (10.0-20.0); Calcium 10.3 mg/dL (8.7-10.4); Carbon Dioxide 29 mmol/L (20-30); Chloride 100 mmol/L (98-107); Glucose 245 mg/dL (74-106); Magnesium 2.4 mg/dL (1.6-2.6); Potassium 4.6 mmol/L (3.5-5.1); Sodium 136 mmol/L (136-145)
[2023-08-24 07:27] LABS: Bilirubin, Total 0.7 mg/dL (0.2-1.0); Total Protein 7.4 g/dL (5.7-8.2)
[2023-08-24 08:07] LABS: Blood Urea Nitrogen 31 mg/dL (9-23)
[2023-08-24] MEDS: DOCUSATE SOD 100 MG CAP PO SCH (10:23)
[2023-08-24] MEDS: cefTRIAXone 1GM/50ML D5W 50 ML IV SCH (10:23)
[2023-08-24] MEDS: POTASSIUM CHL 20 Meq TABLET PO SCH (10:23)
[2023-08-24] MEDS: CYANOCOBALAMIN 500 MCG TAB PO SCH (10:23)
[2023-08-24] MEDS: CARVEDILOL 12.5 MG TAB PO SCH ×2 (10:24→21:48)
[2023-08-24] MEDS: CLOPIDOGREL BISULFATE 75 MG TAB PO SCH (10:24)
[2023-08-24] MEDS: ASPirin-EC 81 mg tab PO SCH (10:24)
[2023-08-24] MEDS: SACUBITRIL-VALSARTAN 24mg/26mg TAB PO SCH ×2 (10:24→21:49)
[2023-08-24] MEDS: FAMOTIDINE 20 MG TAB PO SCH (10:24)
[2023-08-24] MEDS: HEPARIN SODIUM (PORCINE) 5000 UNITS/ML 1ML VIAL SC SCH ×2 (10:30→21:44)
[2023-08-24] MEDS: ALBUTEROL SULF 2.5 MG/0.5ML(0.5%) NEB SOLN NEB PRN (19:56)
[2023-08-24] MEDS: ATORVASTATIN 20 MG TAB PO SCH (21:45)
[2023-08-25] VITALS (18 sets, daily range): BP systolic 80–110; BP diastolic 55–69; PULSE 61–99; RESP 12–20; TEMP 97.5–98.1; O2SAT 93–100
[2023-08-25] MEDS: FUROSEMIDE 40 MG/4 ML VIAL IV SCH ×2 (05:45→18:07)
[2023-08-25] MEDS: INSULIN LANTUS (GLARGINE) 1 /0.01ml (100units/ml) SC SCH (06:06)
[2023-08-25] MEDS: ACCU-CHEK COMFORT CURVE STRIP VI SCH ×4 (06:06→22:27)
[2023-08-25] MEDS: EMPAGLIFLOZIN 10 MG TAB PO SCH (06:10)
[2023-08-25] MEDS: InsuLIN REG 1unit/0.01ml Soln (100units/ml) SC SCH ×4 (06:10→22:31)
[2023-08-25 06:33] LABS: Alanine Aminotransferase 28 U/L (7-40); Albumin 4.6 g/dL (3.2-4.8); Alkaline Phosphatase 98 U/L (46-116); Anion Gap 7 (5-15); Aspartate Aminotransferase 23 U/L (13-40); BUN/Creatinine Ratio 27.4 (10.0-20.0); Basophils # (auto) 0.1 10 ^3/uL (0-0.2); Basophils % (auto) 0.6 % (0.0-2.0); Bilirubin, Total 0.9 mg/dL (0.2-1.0); Blood Urea Nitrogen 34 mg/dL (9-23); Calcium 10.3 mg/dL (8.5-10.1); Carbon Dioxide 33 mmol/L (20-30); Chloride 96 mmol/L (98-107); Eosinophils # (auto) 0.4 10 ^3/uL (0-0.8); Eosinophils % (auto) 2.9 % (0.0-7.0); Glucose 108 mg/dL (74-106); Hematocrit 52.8 % (36.0-46.0); Hemoglobin 17.6 g/dL (12.2-16.2); Lymphocytes # (auto) 2.9 10 ^3/uL (0.4-5.4); Lymphocytes % (auto) 19.5 % (10.0-50.0); Mean Corpuscular Hgb Conc. 33.3 g/dL (32.0-36.0); Mean Corpuscular Volume 96.3 fL (80.0-100.0); Monocytes # (auto) 1.1 10 ^3/uL (0-1.3); Monocytes % (auto) 7.5 % (0.0-12.0); Neutrophils # (auto) 10.2 10 ^3/uL (1.6-8.6); Neutrophils % (auto) 69.5 % (37.0-80.0); Nucleated Red Blood Cells % 0.1 %; Potassium 5.3 mmol/L (3.5-5.1); Red Blood Cells 5.49 10^6/uL (4.0-5.20); Red Cell Distribution Width 14.2 % (11.8-14.3); Sodium 136 mmol/L (136-145); Total Protein 7.4 g/dL (5.7-8.2); White Blood Cell 14.6 10^3/uL (4.4-10.8)
[2023-08-25] MEDS ORDERED: LACTULOSE 20Gm/30ML SOLN PO ONE (09:15)
[2023-08-25] MEDS ORDERED: SODIUM ZIRCONIUM CYCL 10 GM PAK PO ONE (09:15)
[2023-08-25 09:26] LABS: Hepatitis B Surface Antigen Negative (Negative)
[2023-08-25 09:48] LABS: Hepatitis C Antibody Negative (Negative)
[2023-08-25] MEDS: BUDESONIDE (INHALATION) 0.5 MG/2 ML NEB NEB SCH ×2 (10:00→19:37)
[2023-08-25] MEDS ORDERED: LIDOCAINE 2%HCL (LOCAL ANESTH.) INJ 20ML MDV ONE (10:38)
[2023-08-25] MEDS ORDERED: IODIXANOL 320MG/ML 100ML BTL IV ONE ×2 (10:38→11:31)
[2023-08-25] MEDS ORDERED: fentaNYL CITRATE 100 MCG/2 ML VL ONE (10:57)
[2023-08-25] MEDS ORDERED: VERAPAMIL 2.5MG/ML INJ 2ML VIAL IV ONE (10:57)
[2023-08-25] MEDS ORDERED: ANGIOMAX 250 MG VIAL IV ONE (10:57)
[2023-08-25] MEDS ORDERED: HEPARIN SODIUM (PORCINE) 5000 UNITS/ML 1ML VIAL ONE (10:58)
[2023-08-25] MEDS ORDERED: SODIUM CHL 0.9% 0 ML ONE (10:58)
[2023-08-25] MEDS ORDERED: MIDAZOLAM HCL 2MG/2ML 2ml VIAL (1mg/ml) ONE (10:58)
[2023-08-25] MEDS ORDERED: RANO500T3 PO (12:49)
[2023-08-25] MEDS ORDERED: CYAN500T3 PO (12:49)
[2023-08-25] MEDS ORDERED: NITR0.4S29 SL (12:49)
[2023-08-25] MEDS ORDERED: INSLANTI SC (12:49)
[2023-08-25] MEDS ORDERED: ERGO1CAP23 PO (12:49)
[2023-08-25] MEDS ORDERED: ATOR20TA50 PO (12:49)
[2023-08-25] MEDS ORDERED: CEPH500C PO (12:53)
[2023-08-25] MEDS: SACUBITRIL-VALSARTAN 24mg/26mg TAB PO SCH ×2 (13:00→22:00)
[2023-08-25] MEDS ORDERED: GLUC-149 VI (13:00)
[2023-08-25] MEDS ORDERED: CALCIUM CHL 100MG/ML 500 MG in D5W 5% 100 ML IV ONE (13:15)
[2023-08-25] MEDS ORDERED: InsuLIN REG 1unit/0.01ml Soln (100units/ml) IV ONE (13:15)
[2023-08-25] MEDS ORDERED: FUROSEMIDE 20 MG/2 ML VIAL IV ONE (13:15)
[2023-08-25] MEDS ORDERED: DEXTROSE (50%) 50ML SYRG IV ONE (13:15)
[2023-08-25] MEDS: ACETAMINOPHEN 325 MG TAB PO PRN ×2 (13:23→20:36)
[2023-08-25] MEDS: cefTRIAXone 1GM/50ML D5W 50 ML IV SCH (14:36)
[2023-08-25] MEDS: DOCUSATE SOD 100 MG CAP PO SCH (15:28)
[2023-08-25] MEDS: FAMOTIDINE 20 MG TAB PO SCH (15:28)
[2023-08-25] MEDS: ASPirin-EC 81 mg tab PO SCH (15:28)
[2023-08-25] MEDS: CYANOCOBALAMIN 500 MCG TAB PO SCH (15:31)
[2023-08-25] MEDS: HEPARIN SODIUM (PORCINE) 5000 UNITS/ML 1ML VIAL SC SCH ×2 (15:42→22:30)
[2023-08-25] MEDS: ALBUTEROL SULF 2.5 MG/0.5ML(0.5%) NEB SOLN NEB PRN (19:37)
[2023-08-25] MEDS: CARVEDILOL 3.125 MG TAB PO SCH (22:00)
[2023-08-25] MEDS: ATORVASTATIN 20 MG TAB PO SCH (22:26)
[2023-08-25] MEDS: RANOLAZINE ER 500 MG TAB PO SCH (22:26)
[2023-08-26 05:00] VITALS: BP 109/71; PULSE 83; RESP 16; TEMP 97.7; O2SAT 99
[2023-08-26] MEDS: EMPAGLIFLOZIN 10 MG TAB PO SCH (06:15)
[2023-08-26] MEDS: ACCU-CHEK COMFORT CURVE STRIP VI SCH ×2 (06:19→12:04)
[2023-08-26] MEDS: FUROSEMIDE 40 MG/4 ML VIAL IV SCH (06:20)
[2023-08-26 06:27] LABS: Basophils # (auto) 0.1 10 ^3/uL (0-0.2); Basophils % (auto) 0.7 % (0.0-2.0); Eosinophils # (auto) 0.6 10 ^3/uL (0-0.8); Eosinophils % (auto) 4.9 % (0.0-7.0); Hematocrit 48.6 % (36.0-46.0); Hemoglobin 16.3 g/dL (12.2-16.2); Lymphocytes # (auto) 1.8 10 ^3/uL (0.4-5.4); Lymphocytes % (auto) 15.6 % (10.0-50.0); Mean Corpuscular Hemoglobin 32.2 pg (28.0-32.0); Mean Corpuscular Hgb Conc. 33.4 g/dL (32.0-36.0); Mean Corpuscular Volume 96.2 fL (80.0-100.0); Monocytes # (auto) 1.1 10 ^3/uL (0-1.3); Neutrophils # (auto) 8.1 10 ^3/uL (1.6-8.6); Neutrophils % (auto) 69.8 % (37.0-80.0); Red Blood Cells 5.05 10^6/uL (4.0-5.20); Red Cell Distribution Width 13.8 % (11.8-14.3); White Blood Cell 11.7 10^3/uL (4.4-10.8)
[2023-08-26] MEDS: InsuLIN REG 1unit/0.01ml Soln (100units/ml) SC SCH ×2 (06:30→12:05)
[2023-08-26] MEDS: INSULIN LANTUS (GLARGINE) 1 /0.01ml (100units/ml) SC SCH (06:33)
[2023-08-26 06:45] LABS: Alanine Aminotransferase 22 U/L (7-40); Albumin 4.3 g/dL (3.2-4.8); Alkaline Phosphatase 90 U/L (46-116); Anion Gap 8 (5-15); Aspartate Aminotransferase 17 U/L (13-40); BUN/Creatinine Ratio 30.8 (10.0-20.0); Blood Urea Nitrogen 28 mg/dL (9-23); Calcium 9.1 mg/dL (8.7-10.4); Carbon Dioxide 30 mmol/L (20-30); Chloride 97 mmol/L (98-107); Glucose 136 mg/dL (74-106); Potassium 4.1 mmol/L (3.5-5.1); Sodium 135 mmol/L (136-145)
[2023-08-26 06:46] LABS: Bilirubin, Total 0.9 mg/dL (0.2-1.0); Total Protein 6.9 g/dL (5.7-8.2)
[2023-08-26 08:00] VITALS: BP 99/56; PULSE 87; RESP 18; TEMP 97.9; O2SAT 98
[2023-08-26 09:30] VITALS: BP 99/56; PULSE 87; RESP 18; TEMP 97.9; O2SAT 98
[2023-08-26] MEDS: DOCUSATE SOD 100 MG CAP PO SCH (10:00)
[2023-08-26] MEDS: CARVEDILOL 3.125 MG TAB PO SCH (10:00)
[2023-08-26] MEDS: SACUBITRIL-VALSARTAN 24mg/26mg TAB PO SCH (10:00)
[2023-08-26] MEDS: FAMOTIDINE 20 MG TAB PO SCH (10:41)
[2023-08-26] MEDS: CYANOCOBALAMIN 500 MCG TAB PO SCH (10:41)
[2023-08-26] MEDS: RANOLAZINE ER 500 MG TAB PO SCH (10:41)
[2023-08-26] MEDS: ASPirin-EC 81 mg tab PO SCH (10:41)
[2023-08-26] MEDS: cefTRIAXone 1GM/50ML D5W 50 ML IV SCH (10:43)
[2023-08-26 10:46] VITALS: PULSE 99; RESP 14; O2SAT 93
[2023-08-26] MEDS: BUDESONIDE (INHALATION) 0.5 MG/2 ML NEB NEB SCH (10:46)
[2023-08-26] MEDS: ALBUTEROL SULF 2.5 MG/0.5ML(0.5%) NEB SOLN NEB PRN (10:46)
[2023-08-26 10:48] VITALS: O2SAT 93
[2023-08-26 10:53] VITALS: PULSE 98; RESP 14; O2SAT 94
[2023-08-26] MEDS: HEPARIN SODIUM (PORCINE) 5000 UNITS/ML 1ML VIAL SC SCH (10:54)
== END 2023-08-26 12:50 | disposition home or self-care (01) | DRG 286 ==
LOC: ER 15:45 → TELE-WESTW 20:56 → TELE 20:56 → TELE-WESTW 08-21 23:51
PROVIDERS: ADMIT Internal Medicine; ATTEND Internal Medicine
PROC: 4A023N7 Measurement of Cardiac Sampling and Pressure, Left Heart, Percutaneous Approach (ICD-10-PCS; principal; 2023-08-25)
PROC: B211YZZ Fluoroscopy of Multiple Coronary Arteries using Other Contrast (ICD-10-PCS; 2023-08-25)
PROC: B215YZZ Fluoroscopy of Left Heart using Other Contrast (ICD-10-PCS; 2023-08-25)
DX: I25.110 Atherosclerotic heart disease of native coronary artery with unstable angina pectoris (principal); I50.43 Acute on chronic combined systolic (congestive) and diastolic (congestive) heart failure; I13.0 Hypertensive heart and chronic kidney disease with heart failure and stage 1 through stage 4 chronic kidney disease, or unspecified chronic kidney disease; J44.1 Chronic obstructive pulmonary disease with (acute) exacerbation; N39.0 Urinary tract infection, site not specified; Z20.822 Contact with and (suspected) exposure to COVID-19; I42.8 Other cardiomyopathies; E11.21 Type 2 diabetes mellitus with diabetic nephropathy; E78.00 Pure hypercholesterolemia, unspecified; I12.9 Hypertensive chronic kidney disease with stage 1 through stage 4 chronic kidney disease, or unspecified chronic kidney disease; N18.9 Chronic kidney disease, unspecified; E87.5 Hyperkalemia; D72.829 Elevated white blood cell count, unspecified; K57.30 Diverticulosis of large intestine without perforation or abscess without bleeding; E11.65 Type 2 diabetes mellitus with hyperglycemia; K21.9 Gastro-esophageal reflux disease without esophagitis; Z81.8 Family history of other mental and behavioral disorders; Z82.49 Family history of ischemic heart disease and other diseases of the circulatory system; Z83.3 Family history of diabetes mellitus; Z90.711 Acquired absence of uterus with remaining cervical stump; Z95.810 Presence of automatic (implantable) cardiac defibrillator
CPT/HCPCS: 36415; 71045; 74176; 80048; 80053; 80061; 81001; 82306; 82607; 82962; 83036; 83605; 83735; 83880; 84132; 84443; 84484; 85025; 85610; 85730; 86803; 87040; 87086; 87340; 87426; 87804; 93005; 93306; 93458; 94640; 99152; G0378; J1815; J2250; J2405; J7060; Q9967

== ENCOUNTER 2024-03-30 09:58 | Inpatient (IN) | payer MEDICARE, MEDICAID ==
[~2024-03-30] VITALS: Ht 157.5 cm; Wt 69.0 kg
[~2024-03-30 09:58] MED LIST changes: +ALEN70TA74 PO; +ATOR20TA50 PO; +CEPH500C PO; +CYAN500T3 PO; +CYCL-839 PO; +DAPA1TAB4 PO; -DOXY1CAP57 PO; +ERGO1CAP23 PO; +GLUC-149 VI; +INSLANTI SC; +IPRAAER6 INH; +NITR0.4S29 SL; +OMEP-448 PO; -POTA10TA51 PO; -PRED20TA2 PO; +RANO500T3 PO
[2024-03-30 11:54] LABS: Urine Bacteria None Seen /hpf (None Seen)
[2024-03-30 11:55] LABS: Basophils # (auto) 0.1 10 ^3/uL (0-0.2); Basophils % (auto) 1.1 % (0.0-2.0); Eosinophils # (auto) 0.3 10 ^3/uL (0-0.8); Eosinophils % (auto) 2.7 % (0.0-7.0); Hematocrit 44.3 % (36.0-46.0); Hemoglobin 15.6 g/dL (12.2-16.2); Lymphocytes # (auto) 1.9 10 ^3/uL (0.4-5.4); Lymphocytes % (auto) 20.3 % (10.0-50.0); Mean Corpuscular Hemoglobin 33.8 pg (28.0-32.0); Mean Corpuscular Hgb Conc. 35.1 g/dL (32.0-36.0); Mean Corpuscular Volume 96.3 fL (80.0-100.0); Monocytes # (auto) 0.7 10 ^3/uL (0-1.3); Monocytes % (auto) 7.3 % (0.0-12.0); Neutrophils # (auto) 6.5 10 ^3/uL (1.6-8.6); Neutrophils % (auto) 68.6 % (37.0-80.0); Platelet Count (auto) 267 10^3/uL (140-450); Red Cell Distribution Width 14.2 % (11.8-14.3); White Blood Cell 9.4 10^3/uL (4.4-10.8)
[2024-03-30 12:00] LABS: Chloride 107 mmol/L (98-107); Potassium 3.8 mmol/L (3.5-5.1); Sodium 143 mmol/L (136-145)
[2024-03-30 12:01] LABS: Anion Gap 6 (5-15); Calcium 9.3 mg/dL (8.7-10.4); Carbon Dioxide 30 mmol/L (20-30)
[2024-03-30 12:06] LABS: BUN/Creatinine Ratio 7.3 (10.0-20.0); Blood Urea Nitrogen 6 mg/dL (9-23); Glucose 167 mg/dL (74-106)
[2024-03-30 12:09] LABS: Urine Blood Negative /uL (Negative); Urine Clarity Clear (Clear); Urine Color Colorless (Yellow); Urine Protein, UAD Negative (Negative); Urine Specific Gravity 1.009 (1.001-1.035); Urine Urobilinogen Normal (Negative); Urine WBC 6 /hpf (0 - 5)
[2024-03-30] MEDS: FUROSEMIDE 40 MG/4 ML VIAL IV ONE (14:13)
[2024-03-30] MEDS ORDERED: ONDANSETRON HCL 4 MG/2 ML VIAL IV PRN (14:15)
[2024-03-30] MEDS ORDERED: DEXTROSE (50%) 50ML SYRG IV PRN (14:15)
[2024-03-30] MEDS ORDERED: DOCUSATE SOD 100 MG CAP PO PRN (14:15)
[2024-03-30] MEDS: ASPirin 81 mg TAB PO ONE (14:15)
[2024-03-30] MEDS ORDERED: ACETAMINOPHEN 325 MG TAB PO PRN (14:15)
[2024-03-30] MEDS ORDERED: NITROGLYCERIN 0.4 MG SL TAB SL PRN (15:15)
[2024-03-30] MEDS ORDERED: MORPHINE SULFATE INJ 2 MG/ml SYRG IV PRN (15:15)
[2024-03-30] MEDS: ACCU-CHEK COMFORT CURVE STRIP VI SCH (17:00)
[2024-03-30] MEDS: InsuLIN REG 1unit/0.01ml Soln (100units/ml) SC SCH ×2 (17:00→22:00)
[2024-03-30 17:38] VITALS: RESP 20
[2024-03-30] MEDS: IOHEXOL 350 MG/ML 100ML IJ ONE (19:02)
[2024-03-30] MEDS: CARVEDILOL 3.125 MG TAB PO SCH (22:13)
[2024-03-30] MEDS: SODIUM CHLOR 0.9% PF (SALINE LOCK) 10ML VIAL/SYR IV SCH (22:14)
[2024-03-30] MEDS: ATORVASTATIN 20 MG TAB PO SCH (22:14)
[2024-03-30] MEDS: FAMOTIDINE (10MG/ML) 2ML VL IV SCH (22:22)
[2024-03-30 23:30] VITALS: BP 102/66; PULSE 70; RESP 16; TEMP 97.5; O2SAT 99
[2024-03-31] VITALS (17 sets, daily range): BP systolic 89–116; BP diastolic 51–69; PULSE 60–102; RESP 15–18; TEMP 97.5–98.6; O2SAT 94–99
[2024-03-31 07:31] LABS: Basophils # (auto) 0.1 10 ^3/uL (0-0.2); Basophils % (auto) 0.9 % (0.0-2.0); Eosinophils # (auto) 0.4 10 ^3/uL (0-0.8); Eosinophils % (auto) 4.1 % (0.0-7.0); Hematocrit 47.4 % (36.0-46.0); Hemoglobin 16.2 g/dL (12.2-16.2); Lymphocytes # (auto) 1.8 10 ^3/uL (0.4-5.4); Mean Corpuscular Hemoglobin 33.2 pg (28.0-32.0); Mean Corpuscular Hgb Conc. 34.3 g/dL (32.0-36.0); Mean Corpuscular Volume 96.8 fL (80.0-100.0); Monocytes # (auto) 0.8 10 ^3/uL (0-1.3); Monocytes % (auto) 7.6 % (0.0-12.0); Neutrophils # (auto) 7.6 10 ^3/uL (1.6-8.6); Neutrophils % (auto) 70.4 % (37.0-80.0); Platelet Count (auto) 246 10^3/uL (140-450); Red Blood Cells 4.89 10^6/uL (4.0-5.20); White Blood Cell 10.8 10^3/uL (4.4-10.8)
[2024-03-31 07:42] LABS: Alanine Aminotransferase 28 U/L (7-40); Alkaline Phosphatase 86 U/L (46-116); Anion Gap 7 (5-15); BUN/Creatinine Ratio 9.2 (10.0-20.0); Blood Urea Nitrogen 8 mg/dL (9-23); Calcium 9.5 mg/dL (8.7-10.4); Carbon Dioxide 27 mmol/L (20-30); Chloride 104 mmol/L (98-107); Glucose 201 mg/dL (74-106); Potassium 4.2 mmol/L (3.5-5.1); Sodium 138 mmol/L (136-145)
[2024-03-31 07:43] LABS: Albumin 3.9 g/dL (3.2-4.8); Aspartate Aminotransferase 23 U/L (13-40); Bilirubin, Total 0.7 mg/dL (0.2-1.0); Total Protein 6.4 g/dL (5.7-8.2)
[2024-03-31] MEDS: FUROSEMIDE 20 MG/2 ML VIAL IV SCH (09:34)
[2024-03-31] MEDS: ASPirin 81 mg TAB PO SCH (09:34)
[2024-03-31] MEDS: ALBUTEROL SULF 2.5 MG/0.5ML(0.5%) NEB SOLN NEB STA (15:34)
[2024-03-31] MEDS: IPRATROPIUM BROM 0.5 MG/2.5ML INH SOL NEB ONE (15:34)
[2024-03-31] MEDS: AZITHROMYCIN 500MG/ 250ML 250 ML IV STA (15:38)
[2024-03-31] MEDS: ENOXAPARIN SOD 40 MG/0.4 ML SYRINGE SC STA (15:39)
[2024-03-31] MEDS: cefTRIAXone 1GM/50ML D5W 50 ML IV STA (16:05)
[2024-03-31] MEDS ORDERED: FLUT1AER17 INH (16:46)
[2024-03-31] MEDS ORDERED: CHOL50007 PO (17:11)
[2024-03-31] MEDS: IPRATROPIUM BROM 0.5 MG/2.5ML INH SOL NEB SCH (19:31)
[2024-03-31] MEDS: ALBUTEROL SULF 2.5 MG/0.5ML(0.5%) NEB SOLN NEB SCH (19:31)
[2024-03-31] MEDS: INSULIN LANTUS (GLARGINE) 1 /0.01ml (100units/ml) SC SCH (22:42)
[2024-04-01] VITALS (14 sets, daily range): BP systolic 93–121; BP diastolic 49–75; PULSE 56–103; RESP 16–19; TEMP 97.3–98.7; O2SAT 92–99
[2024-04-01 06:50] LABS: Anion Gap 5 (5-15); Carbon Dioxide 30 mmol/L (20-30); Chloride 104 mmol/L (98-107); Potassium 3.8 mmol/L (3.5-5.1); Sodium 139 mmol/L (136-145)
[2024-04-01 06:51] LABS: Calcium 9.6 mg/dL (8.7-10.4)
[2024-04-01 06:56] LABS: BUN/Creatinine Ratio 14.9 (10.0-20.0); Blood Urea Nitrogen 13 mg/dL (9-23); Glucose 205 mg/dL (74-106)
[2024-04-01 07:02] LABS: Basophils # (auto) 0 10 ^3/uL (0-0.2); Basophils % (auto) 0.5 % (0.0-2.0); Eosinophils # (auto) 0.4 10 ^3/uL (0-0.8); Eosinophils % (auto) 3.8 % (0.0-7.0); Hematocrit 46.9 % (36.0-46.0); Hemoglobin 16.2 g/dL (12.2-16.2); Lymphocytes # (auto) 1.5 10 ^3/uL (0.4-5.4); Lymphocytes % (auto) 15.1 % (10.0-50.0); Mean Corpuscular Hemoglobin 33.3 pg (28.0-32.0); Mean Corpuscular Hgb Conc. 34.6 g/dL (32.0-36.0); Mean Corpuscular Volume 96.3 fL (80.0-100.0); Monocytes # (auto) 0.8 10 ^3/uL (0-1.3); Monocytes % (auto) 7.7 % (0.0-12.0); Neutrophils # (auto) 7.2 10 ^3/uL (1.6-8.6); Neutrophils % (auto) 72.9 % (37.0-80.0); Nucleated Red Blood Cells % 0.1 %; Platelet Count (auto) 246 10^3/uL (140-450); Red Blood Cells 4.87 10^6/uL (4.0-5.20); Red Cell Distribution Width 14.2 % (11.8-14.3); White Blood Cell 9.8 10^3/uL (4.4-10.8)
[2024-04-01] MEDS: cefTRIAXone 1GM/50ML D5W 50 ML IV SCH (08:56)
[2024-04-01] MEDS: ENOXAPARIN SOD 40 MG/0.4 ML SYRINGE SC SCH (08:58)
[2024-04-01] MEDS: AZITHROMYCIN 500MG/ 250ML 250 ML IV SCH (09:54)
[2024-04-01 11:32] LABS: Base Excess 0.3 mmol/L (-2.0-2.0)
[2024-04-01] MEDS: HYDROcodone-ACET 5/325MG TAB PO PRN (14:03)
[2024-04-01 14:08] LABS: Base Excess 1.4 mmol/L (-2.0-2.0)
[2024-04-02] VITALS (10 sets, daily range): BP systolic 103–114; BP diastolic 65–73; PULSE 86–112; RESP 16–18; TEMP 97.9–99.3; O2SAT 90–98
[2024-04-02 09:40] LABS: Basophils # (auto) 0 10 ^3/uL (0-0.2); Basophils % (auto) 0.5 % (0.0-2.0); Eosinophils # (auto) 0.6 10 ^3/uL (0-0.8); Eosinophils % (auto) 6.3 % (0.0-7.0); Hematocrit 45.1 % (36.0-46.0); Hemoglobin 15.7 g/dL (12.2-16.2); Lymphocytes # (auto) 1.4 10 ^3/uL (0.4-5.4); Lymphocytes % (auto) 14.2 % (10.0-50.0); Mean Corpuscular Hemoglobin 33.8 pg (28.0-32.0); Mean Corpuscular Hgb Conc. 34.8 g/dL (32.0-36.0); Mean Corpuscular Volume 97.1 fL (80.0-100.0); Monocytes # (auto) 0.9 10 ^3/uL (0-1.3); Monocytes % (auto) 9.1 % (0.0-12.0); Neutrophils # (auto) 6.7 10 ^3/uL (1.6-8.6); Neutrophils % (auto) 69.9 % (37.0-80.0); Platelet Count (auto) 241 10^3/uL (140-450); Red Blood Cells 4.64 10^6/uL (4.0-5.20); White Blood Cell 9.6 10^3/uL (4.4-10.8)
[2024-04-02] MEDS: RANOLAZINE ER 500 MG TAB PO SCH (10:15)
[2024-04-02] MEDS: SACUBITRIL-VALSARTAN 24mg/26mg TAB PO SCH (10:15)
[2024-04-02 10:40] LABS: Anion Gap 1 (5-15); Carbon Dioxide 31 mmol/L (20-30); Chloride 106 mmol/L (98-107); Potassium 4.4 mmol/L (3.5-5.1); Sodium 138 mmol/L (136-145)
[2024-04-02 10:41] LABS: Calcium 9.4 mg/dL (8.7-10.4)
[2024-04-02 10:45] LABS: BUN/Creatinine Ratio 14.9 (10.0-20.0); Blood Urea Nitrogen 13 mg/dL (9-23); Glucose 183 mg/dL (74-106)
[2024-04-02] MEDS ORDERED: CEFP200T15 PO (12:50)
[2024-04-02] MEDS ORDERED: AZITTAB PO (12:50)
== END 2024-04-02 14:45 | disposition home health service (06) | DRG 177 ==
LOC: ER 10:00 → TELE 15:07 → TELE-CENTR 23:01
PROVIDERS: ADMIT Internal Medicine Pulmonary Disease; ATTEND Emergency Medicine
DX: J15.69 Pneumonia due to other Gram-negative bacteria (principal); I50.43 Acute on chronic combined systolic (congestive) and diastolic (congestive) heart failure; J96.01 Acute respiratory failure with hypoxia; I13.0 Hypertensive heart and chronic kidney disease with heart failure and stage 1 through stage 4 chronic kidney disease, or unspecified chronic kidney disease; J44.1 Chronic obstructive pulmonary disease with (acute) exacerbation; J15.9 Unspecified bacterial pneumonia; E66.9 Obesity, unspecified; I25.10 Atherosclerotic heart disease of native coronary artery without angina pectoris; N18.9 Chronic kidney disease, unspecified; E11.22 Type 2 diabetes mellitus with diabetic chronic kidney disease; E78.5 Hyperlipidemia, unspecified; Z90.710 Acquired absence of both cervix and uterus; Z82.49 Family history of ischemic heart disease and other diseases of the circulatory system; Z83.3 Family history of diabetes mellitus; Z81.8 Family history of other mental and behavioral disorders; Z68.27 Body mass index [BMI] 27.0-27.9, adult
CPT/HCPCS: 36415; 36600; 71045; 71275; 80048; 80053; 81001; 82805; 82962; 83036; 83880; 84484; 85025; 85379; 93005; 93306; 93970; 94640; 99291; G0378; J1815; J2405; J3490

== ENCOUNTER 2024-05-03 17:53 | Emergency (ER) | payer MEDICARE, MEDICAID ==
[~2024-05-03] VITALS: Ht 157.5 cm; Wt 65.0 kg
[~2024-05-03 17:53] MED LIST changes: -ATOR20TA50 PO; +AZITTAB PO; +CEFP200T15 PO; -CEPH500C PO; +CHOL50007 PO; -ERGO1CAP23 PO; +FLUT1AER17 INH; -FLUT1AER3 IN; -GLUC-149 VI; -PANT40TA2 PO
[2024-05-04 01:00] VITALS: BP 127/79; PULSE 76; RESP 18; TEMP 97.4; O2SAT 96
== END 2024-05-04 01:02 | disposition home or self-care (01) ==
LOC: ER 17:53
DX: S92.512A Displaced fracture of proximal phalanx of left lesser toe(s), initial encounter for closed fracture (principal); I11.0 Hypertensive heart disease with heart failure; I50.9 Heart failure, unspecified; E11.9 Type 2 diabetes mellitus without complications; E78.5 Hyperlipidemia, unspecified; J44.9 Chronic obstructive pulmonary disease, unspecified; Z98.890 Other specified postprocedural states; Z79.899 Other long term (current) drug therapy; X58.XXXA Exposure to other specified factors, initial encounter; Y93.89 Activity, other specified; Y92.89 Other specified places as the place of occurrence of the external cause; Y99.8 Other external cause status
CPT/HCPCS: 73630

== ENCOUNTER 2025-04-12 11:40 | Emergency (ER) | payer MEDICARE, MEDICAID ==
[~2025-04-12] VITALS: Ht 154.9 cm; Wt 65.0 kg
[2025-04-12 11:44] VITALS: TEMP 97.5
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
--- NOTE | 2025-04-12 12:51 | DVH ---
EXAM: CT CT AB PEL WO CON-NO ORAL OR IV INDICATION: pain TECHNIQUE: Volumetric multidetector CT images of the abdomen and pelvis were obtained without contras t. All CT scans at this facility use dose modulation, iterative reconstruction, and/or weight based d osing when appropriate to reduce radiation dose to as low as reasonably achievable. COMPARISON: CT CT AB PEL WO CON-NO ORAL OR IV on DOS: 08/21/23 FINDINGS: [LOWER CHEST]: The partially visualized lung bases are clear without a pleural effusion. The cardiac size is normal without pericardial effusion. [LIVER]: Normal hepatic size without suspicious focal lesion. [GALLBLADDER AND BILIARY TREE]: No cholelithiasis. [SPLEEN]: Unremarkable. [PANCREAS]: Unremarkable. [ADRENAL GLANDS]: Unremarkable [KIDNEYS]: No hydronephrosis. No nephroureterolithiasis. [BLADDER]: Unremarkable for the degree distention. [REPRODUCTIVE ORGANS]: Hysterectomy. [BOWEL/MESENTERY]: Stomach is normal. No CT evidence of bowel obstruction. Normal appendix. Moderate to severe sigmoid diverticulosis. Mild descending colonic diverticulosis [ASCITES]: Absent [LYMPHADENOPATHY]: No pathologically enlarged lymph nodes by CT size criteria [VASCULATURE]: No aneurysmal dilatation. [ABDOMINAL WALL]: Unremarkable. [MUSCULOSKELETAL]: No acute fracture or aggressive focal osseous lesion. Multifocal degenerative lira ge of the visualized spine. electronic device along the left lateral chest. Posterior fusion hardwar e IMPRESSION: 1. No CT evidence of an acute abdominal/pelvic process. 2. Moderate to severe sigmoid diverticulosis. Rfwa-qk-gmoyelxd stool burden. Correlate for constipa tion
[2025-04-12 13:04] LABS: Hematocrit 45.7 % (36.0-46.0); Hemoglobin 15.9 g/dL (12.2-16.2); Mean Corpuscular Hemoglobin 33.2 pg (28.0-32.0); Mean Corpuscular Volume 95.6 fL (80.0-100.0); Nucleated Red Blood Cells % 0.1 %
[2025-04-12 13:09] LABS: Chloride 103 mmol/L (98-107); Potassium 4.6 mmol/L (3.5-5.1); Sodium 139 mmol/L (136-145)
[2025-04-12 13:10] LABS: Anion Gap 9 (5-15); Calcium 9.5 mg/dL (8.7-10.4); Carbon Dioxide 27 mmol/L (20-31)
[2025-04-12 13:15] LABS: BUN/Creatinine Ratio 9.5 (10.0-20.0)
[2025-04-12 13:17] LABS: Blood Urea Nitrogen 8 mg/dL (9-23); Glucose 296 mg/dL (74-106)
[2025-04-12 15:19] LABS: Urine Protein, UAD Negative (Negative)
--- NOTE | 2025-04-12 15:28 | DVH ---
EXAM: XY R SHOULDER 2+ VIEW XRAY CLINICAL INDICATION: pain TECHNIQUE: XY R SHOULDER 2+ VIEW XRAY Comparison: None FINDINGS/IMPRESSION: There is no evidence of acute fracture or dislocation. The visualized joint space is well maintained. The alignment is anatomical. There is no radiopaque foreign body.
[2025-04-12] MEDS: ONDANSETRON HCL 4 MG/2 ML VIAL IV ONE (15:40)
[2025-04-12] MEDS: MORPHINE SULFATE 4 MG/ML SYR/VIAL IV ONE (15:41)
[2025-04-12 16:14] VITALS: BP 123/76; PULSE 89; RESP 16; O2SAT 95
== END 2025-04-12 16:39 | disposition left against medical advice (07) ==
LOC: ER 11:40
DX: R10.84 Generalized abdominal pain (principal); E11.9 Type 2 diabetes mellitus without complications; I11.0 Hypertensive heart disease with heart failure; I50.9 Heart failure, unspecified; J44.9 Chronic obstructive pulmonary disease, unspecified; Z79.899 Other long term (current) drug therapy; Z98.51 Tubal ligation status; Z95.0 Presence of cardiac pacemaker
CPT/HCPCS: 36415; 73030; 74176; 80048; 81001; 85025; 96374; 96375; 99285; J2270; J2405

== ENCOUNTER 2025-04-30 12:45 | Emergency (ER) | payer MEDICARE, MEDICAID ==
[~2025-04-30] VITALS: Ht 157.5 cm; Wt 62.5 kg
--- NOTE | 2025-04-30 14:10 | ED.PDOC ---
Musculoskeletal HPI Comments A 60 YEAR OLD FEMALE PRESENTS TO THE ED WITH COMPLAINT OF UPPER EXTREMITY PAIN . PATIENT STATES SHE HAS BEEN HAVING LEFT SHOULDER PAIN FOR THE PAST 3 WEEKS. PATIENT STATES THE PAIN IS CONSTANT NONRADIATING WITH NO ASSOCIATED EXACERBATING OR RELIEVING FACTORS. PT WAS IN THIS ER 3 WEEKS AGO FOR SAME, RIGHT SHOULDER X-RAY DONE: WNL. PATIENT DENIES FEVER, CHILLS, SHORTNESS OF BREATH, CHEST PAIN, ABDOMINAL PAIN, NAUSEA, VOMITING, HEADACHE, OR OTHER COMPLAINTS. NO OTHER SYMPTOMS OR MODIFYING FACTORS AT THIS TIME. PATIENT IS ALERT, ORIENTED X 4, AND HAS STEADY GAIT. Chief Complaint: Upper Extremity Time Seen by MD: 14:06 Primary Care Provider: MAYITO Reviewed Notes: Nurses Notes, Medications, Allergies Allergies: Coded Allergies: NO KNOWN ALLERGIES (Unverified , 01/25/21) Home Meds Active Scripts Azithromycin (Zithromax Z-Karel) 250 Mg Tab, 250 MG PO DAILY for 5 Days, #5 TAB Prov:FOREIGN BARRON RESIDENT 04/02/24 Cefpodoxime Proxetil (Cefpodoxime Proxetil) 200 Mg Tab, 1 TAB PO BID for 4 Days, #8 TAB Prov:FOREIGN BARRON RESIDENT 04/02/24 Ranolazine (Ranolazine ER) 500 Mg Tab, 500 MG PO BID for 30 Days, #60 TAB Prov:RADHA BECKHAM RESIDENT 08/25/23 Insulin Glargine (Lantus) 100 Unit/Ml Inj, 10 UNITS SC QAM for 30 Days, #1 INJ Prov:RADHA BECKHAM RESIDENT 08/25/23 Cyanocobalamin (Gnp Vitamin B12) 500 Mcg Tab, 1000 MCG PO DAILY for 30 Days, #60 TAB Prov:RADHA BECKHAM RESIDENT 08/25/23 Lorazepam (ATIVAN TABLET) 0.5 Mg Tb, 1 TAB PO BID, #30 TAB Prov:LUIS A MELISSA MD 11/29/21 Reported Medications Cholecalciferol (VITAMIN D3) 5,000 Unit Cap, 1 CAP PO DAILY 03/31/24 Omeprazole (Omeprazole Dr) 40 Mg Cap, 1 CAP PO DAILY for 30 Days, #30 03/31/24 Cyclobenzaprine Hcl (Cyclobenzaprine Hcl) 10 Mg Tab, 1 TAB PO BID PRN for MUSCLE SPAMS for 21 Days, #42 03/31/24 Ipratropium-Albuterol (COMBIVENT RESPIMAT) Respimat Aer, 2 PUFF INH QID for 90 Days, #12 03/31/24 Alendronate Sodium (Alendronate Sodium) 70 Mg Tab, 1 TAB PO QWEEKLY for 84 Days, #12 3 Refills 03/31/24 Nitroglycerin (NTROSTAT SUBLINGUAL) 0.4 Mg Sl, 1 TAB SL Q5MINP PRN for CHEST PAIN for 25 Days, #25 *MAY REPEAT EVERY 5 MINUTES X 3 TOTAL IF NO RELIEF, INITIATE ANALGESIC THERAPY. NOTIFY PHYSICIAN *Do not crush. 03/31/24 Dapagliflozin Propanediol (Farxiga) 10 Mg Tab, 1 TAB PO DAILY for 90 Days, #90 03/31/24 Rosuvastatin Calcium (Crestor) 10 Mg Tab, 1 TAB PO DAILY for 30 Days, #30 03/31/24 Ykyaabeyqxa-Zwbrpqkndewv-Xcoli (Trelegy Ellipta 200-62.5-25 Mcg/INH) 1 Aer Aer, 1 PUFF INH DAILY 03/31/24 Levalbuterol Tartrate (Levalbuterol Tartrate Hfa) 45 Mcg/Act Aer, 2 PUFF IN QIDP PRN for SHORTNESS OF BREATH 01/25/21 Furosemide (Furosemide) 20 Mg Tab, 1 TAB PO QAM for CHF 01/25/21 Sacubitril-Valsartan (Entresto 24-26 mg) 1 Tab Tab, 1 TAB PO BID for CHF for 90 Days, #180 01/25/21 Aspirin (Aspirin) 81 Mg Tab, 1 TAB PO DAILY for HEART ATTACK PREVENTION HOLD for 3 days, may resume on Friday01/29/21. 01/25/21 Sitagliptin Phosphate (Januvia) 100 Mg Tab, 1 TAB PO DAILY for DIABETES for 90 Days, #90 01/25/21 Carvedilol (Carvedilol) 3.125 Mg Tab, 1 TAB PO QAM for HYPERTENSION 01/25/21 Metformin Hydrochloride (METFORMIN HCL ER) 1,000 Mg Tab, 1 TAB PO QAM for DIABETES HOLD for 3 days, may resume on Friday01/29/21. 01/25/21 Information Source: Patient Mode of Arrival: Ambulatory Location: Right Extremity Location: Shoulder Timing: Days Prehospital treatment: Treatment Severity: Moderate Able to Move Extremity: Yes Bear Weight: Limited Pain: Moderate Hand Dominance: Right Mechanism: Spontaneous Circumstances: Spontaneous Onset of Symptoms: Spontaneous Symptoms: Pain Last Tetanus: UTD Associated signs and symptoms: Shoulder pain Past Medical History PAST MEDICAL HISTORY: Cancer, CHF, COPD, DM, High Lipids, HTN Surgical History: BTL, Pacemaker LEAD SOFTWARE ARCHITECT History: Denies all LEAD SOFTWARE ARCHITECT Hx Family History Family History: Family hx of Cancer, Family hx of heart chanell, Family hx of HTN Social History Smoker: Non-Smoker Alcohol: Denies ETOH Use Drugs: Denies Drug Use Lives In: Home Constitutional: denies: chills, diaphoresis, fatigue, fever, malaise, sweats, weakness, others EENTM: denies: blurred vision, double vision, ear bleeding, ear discharge, ear drainage, ear pain, ear ringing, eye pain, eye redness, hearing loss, mouth pain, mouth swelling, nasal discharge, nose bleeding, nose congestion, nose pain, photophobia, tearing, throat pain, throat swelling, voice changes, others Respiratory: denies: cough, hemoptysis, orthopnea, SOB at rest, shortness of breath, SOB with excertion, stridor, wheezing, others Cardiovascular: denies: chest pain, dizzy spells, diaphoresis, Dyspnea on exertion, edema, irregular heart beat, left arm pain, lightheadedness, palpitations, PND, syncope, others Gastrointestinal: denies: abdomen distended, abdominal pain, blood streaked bowels, constipated, diarrhea, dysphagia, difficulty swallowing, hematemesis, melena, nausea, poor appetite, poor fluid intake, rectal bleeding, rectal pain, vomiting, others Genitourinary: denies: abnormal vagina bleeding, burning, dyspareunia, dysuria, flank pain, frequency, hematuria, incontinence, pain, , vagina discharge, urgency, others Neurological: denies: dizziness, fainting, headache, left sided numbness, left sided weakness, numbness, paresthesia, pre-existing deficit, right sided numbness, right sided weakness, seizure, speech problems, tingling, tremors, weakness, others Musculoskeletal: reports: joint pain (RIGHT SHOULDER), muscle pain; denies: back pain, gout, joint swelling, muscle stiffness, neck pain, others Integumetry: denies: bruises, change in color, change in hair/nails, dryness, laceration, lesions, lumps, rash, wounds, others Allergic/Immunocompromised: denies: Difficulty Healing, Frequent Infections, Hives, Itching, others Hematologic/Lymphatic: denies: anemia, blood clots, easy bleeding, easy brui sing, swollen glands, others Endocrine: denies: excessive hunger, excessive sweating, excessive thirst, ex cessive urination, flushing, intolerance to cold, intolerance to heat, unexplained weight gain, unexplained weight loss, others Psychiatric: denies: anxiety, bipolar disorder, depression, hopeless, panic disorder, schizophrenia, sleepless, suicidal, others All Other Systems: Reviewed and Negative Physical Exam General Appearance: No Apparent Distress, Normal HEENT: Normal ENT Inspection, PERRL/EOMI, Pharynx Normal, TMs Normal Neck: Full Range of Motion, Non-Tender, Normal, Normal Inspection Respiratory: Chest Non-Tender, Lungs Clear, No Accessory Muscle Use, No Respiratory Distress, Normal Breath Sounds Cardiovascular: No Edema, No JVD, No Murmur, No Gallop, Normal Peripheral Pulses, Regular Rate/Rhythm Breast Exam: Deferred Gastrointestinal: No Organomegaly, Non Tender, No Pulsatile Mass, Normal Bowel Sounds, Soft Genitalia: Deferred Pelvic: Deferred Rectal: Deferred Extremities: Decreased range of motion (SLIGHTLY. ), No calf tenderness, Normal capillary refill, No pedal edema, Tender (RIGHT SHOULDER, NO BONY TENDERNESS, SWELLING AND DEFORMITY. ) Musculoskeletal : Apperance: Normal Neurologic: Alert, advertising job titles II-XII nml as Tested, No Motor Deficits, Normal Affect, Normal Mood, No Sensory Deficits Cerebellar Function: Normal Reflexes: Normal Skin: Dry, Normal Color, Warm Peripheral Pulses: 2+ carotid (R), 2+ carotid (L), 2+ Radial (R), 2+ Radial (L) Lymphatic: No Adenopathy Was a procedure done? Was a procedure done?: No Differential Diagnosis EXT Differential Diagnosis: Dislocation, Strain, Neurovascular injury, Arthritis, Bursitis Other Differential Diagnosis TENDINITIS ARTHRITIS X-Ray, Labs, Meds, VS Vital Signs Date Time Temp Pulse Resp B/P (MAP) Pulse Ox O2 Delivery O2 Flow Rate FiO2 04/30/25 12:47 97.3 80 18 126/88 98 97.3 X-Ray, Labs, Meds, VS Comment COURSE: EXTERNAL MEDICAL RECORDS REVIEWED: [NONE] INDEPENDENT HISTORIANS: [NONE] SOCIAL DETERMINANTS OF HEALTH: [NONE] LABS ORDERED: NONE REVIEWED AND INTERPRETED RESULTS: NONE IMAGING ORDERED: NONE TREATMENTS ORDERED: PT DECLINED PROCEDURES PERFORMED: NONE CRITICAL CARE TIME: NONE I HAVE DISCUSSED THE PATIENT WITH THE ATTENDING PHYSICIAN, DR. SHERWOOD, HE AGREES WITH THE PATIENT'S PLAN OF CARE AND DISPOSITION. BASED ON HISTORY OF PRESENT ILLNESS, AND PHYSICAL EXAM, PATIENT WILL BE DISCHARGED HOME. PT DECLINED PAIN RX. SHARED DECISION MAKING: DISCUSSED WITH PATIENT THAT THEIR WORKUP WAS NORMAL. PATIENT INSTRUCTED TO FOLLOW UP WITH PRIMARY CARE PROVIDER IN 1-2 DAYS FOR RE- EVALUATION OF SYMPTOMS. PATIENT VERBALIZES UNDERSTANDING TO RETURN TO ED FOR NEW OR WORSENING SYMPTOMS OR IF FOLLOW UP WITH PCP CANNOT BE OBTAINED. PATIENT FEELS COMFORTABLE GOING HOME AT THIS TIME. ALL QUESTIONS ADDRESSED AT TIME OF DISCHARGE. Time of 1ST Reevaluation: 14:13 Reevaluation 1ST: Improved Patient Education/Counseling: Diagnosis, Treatment, Need For Follow Up Family Education/Counseling: Diagnosis, Treatment, No Family Present Medical Screening: No EMC Exist At This Time Departure 1 Departure Time of Disposition: 14:14 Impression: Primary Impression: Right shoulder tendonitis Disposition: 01 HOME / SELF CARE / HOMELESS Condition: Stable Additional Instructions: FOLLOW-UP WITH PCP IN 1 TO 2 DAYS. TAKE MEDICATIONS PRESCRIBED. RETURN TO ED FOR ANY NEW OR WORSENING SYMPTOMS. Discharged With: Self Critical Care Note Critical Care Time?: No Stability Stability form required: No Heart Score Heart Score: Heart Score Response (Comments) Value History N/A 0 EKG N/A 0 Age N/A 0 Risk Factors N/A 0 Troponin N/A 0 Total 0 I personally scribed for BRYANT WATSON ([email or web address]) on 04/30/25 at 14:10. Electronically submitted by Marli Esparza ([email or web address]). BRYANT WATSON Apr 30, 2025 14:10
[2025-04-30 14:21] VITALS: BP 117/79; PULSE 80; RESP 18; TEMP 98; O2SAT 93
== END 2025-04-30 14:28 | disposition home or self-care (01) ==
LOC: ER 12:45
DX: M75.91 Shoulder lesion, unspecified, right shoulder (principal); I11.0 Hypertensive heart disease with heart failure; I50.9 Heart failure, unspecified; E11.9 Type 2 diabetes mellitus without complications; J44.9 Chronic obstructive pulmonary disease, unspecified; Z79.84 Long term (current) use of oral hypoglycemic drugs; Z79.899 Other long term (current) drug therapy; Z95.0 Presence of cardiac pacemaker; Z98.51 Tubal ligation status